=== PATIENT | female | born 1945 | race Caucasian/White ===

== ENCOUNTER → 2016-12-07 | Outpatient (CLI) | payer OTHER | LOC: FIMAGING 15:18 | DX: Z12.31 Encounter for screening mammogram for malignant neoplasm of breast (principal); Z80.3 Family history of malignant neoplasm of breast | CPT/HCPCS: G0202 ==

== ENCOUNTER → 2016-12-07 | Outpatient (CLI) | payer OTHER | LOC: FIMAGING 16:13 | PROVIDERS: ATTEND Family Medicine | DX: M20.12 Hallux valgus (acquired), left foot (principal); M77.32 Calcaneal spur, left foot; M85.872 Other specified disorders of bone density and structure, left ankle and foot; M25.551 Pain in right hip ==

== ENCOUNTER 2017-07-26 15:30 | Inpatient (IN) | payer OTHER ==
--- NOTE | 2017-07-26 16:02 | CPEKG ---
Heart Rate: 156 RR Interval: 385 QRSD Interval: 76 QT Interval: 300 QTC Interval: 483 QRS [place]: 74 T Wave [place]: -65 EKG Severity - ABNORMAL ECG - EKG Impression: ATRIAL FIBRILLATION WITH RAPID V-RATE EKG Impression: REPOLARIZATION ABNORMALITY, PROB RATE RELATED Electronically Signed By: Justin Cordero 26-Jul-2017 23:12:34
[2017-07-26 17:21] LABS: % IMMATURE GRANULYOCYTES 0.3 % (0.0-1.1); ABSOLUTE IMMATURE GRANULOCYTES 0.03 10^3/uL (0.00-0.10); ADD DIFF? NO; ADD MORPH? NO; ADD SCAN? NO; ATYPICAL LYMPHOCYTE FLAG 10 (0-99); FRAGMENT RBC FLAG 0 (0-99); HEMOGLOBIN 14.8 g/dL (12.6-16.3); LEFT SHIFT FLG 0 (0-99); LIPEMIA HEMOLYSIS FLAG 90 (0-99); MEAN CELL HEMOGLOBIN CONCENTR. 34.4 g/dL (32.4-36.7); MEAN PLATELET VOLUME 10.9 fL (8.7-11.7); PLATELET CLUMPS FLAG 0 (0-99); PLATELET COUNT 273 10^3/uL (150-400); RED BLOOD CELL COUNT 4.48 10^6/uL (4.18-5.33); RED CELL DISTRIBUTION WIDTH 14.1 % (11.5-15.2)
[2017-07-26 17:39] LABS: ANION GAP 12 mEq/L (8-16); CALCIUM 10.5 mg/dL (8.5-10.4); CARBON DIOXIDE 25 mEq/l (22-31); CHLORIDE 97 mEq/L (97-110); CREATININE 0.8 mg/dL (0.6-1.0); GLOMERULAR FILTRATION RATE > 60; GLUCOSE 95 mg/dL (70-100); POTASSIUM 3.8 mEq/L (3.5-5.2); SODIUM 134 mEq/L (134-144)
[2017-07-26] MEDS ORDERED: NS 1,000 ML IV ONE (17:40)
[2017-07-26 17:50] LABS: TROPONIN I 0.045 ng/mL (0.000-0.034)
[2017-07-26] MEDS ORDERED: METOPROLOL SUCCINATE XR 25 MG TAB PO ONE (18:22)
[2017-07-26] MEDS ORDERED: HEPARIN/DEXTROSE 500 ML IV SCH (18:30)
[2017-07-26] MEDS ORDERED: HEPARIN 10,000 UNIT/10 ML MDV IVP PRN (18:30)
[2017-07-26] MEDS ORDERED: HEPARIN 10,000 UNIT/10 ML MDV IVP ONE (18:32)
[2017-07-26] MEDS ORDERED: ASPIRIN 81 MG CHEWABLE TAB PO ONE (18:32)
--- NOTE | 2017-07-26 18:32 | EDPHY ---
H & P Stated Complaint: saw pcp today, after leaving had left chest discomfort Time Seen by Provider: 07/26/17 16:00 HPI/ROS: Chief Complaint: Chest pain, palpitations HPI: 72-year-old woman presenting with onset of chest pain and palpitations this afternoon. Pain described as a tightness in the right side of her chest and central chest up to about a 2 to 3/10. Currently she is pain free. She continues to have some palpitations. This occurred after she visited her primary care physician. Patient states she has had increased stress the last several days. She has history of palpitations in the past. She does have a history of hyponatremia and hypokalemia. She has had her palpitations attributed to this. No nausea vomiting or diarrhea. No fevers or chills. No fainting. Has never were a Holter monitor. She does take daily aspirin. Does not have any diagnosed history of coronary disease. ROS: 10 point Review of Systems is negative except as noted in the HPI. PMH: Hyponatremia, chronic back pain, colon cancer status post resection Medications: Aspirin, meloxicam p.r.n., estrogen Allergies: None Social History: No smoking, rare alcohol, no recreational drug use Family History: No family history of coronary artery disease Physical Exam: Gen: Awake, Alert, No Distress HEENT: Nose: no rhinorrhea Eyes: PERRLA, EOMI Mouth: Moist mucosa Neck: Supple, no JVD Chest: nontender, lungs clear to auscultation Heart: S1, S2 normal, no murmur, tachycardic, regular Abd: Soft, non-tender, no guarding Back: no CVA tenderness, no midline tenderness Ext: no edema, non-tender Skin: no rash Neuro: CN II-XII intact, Sensation grossly intact, Strength 5/5 in bilateral upper and lower extremities - Personal History Current Tetanus Diphtheria and Acellular Pertussis (TDAP): No - Medical/Surgical History Hx Asthma: No Hx Chronic Respiratory Disease: No Hx Diabetes: No Hx Cardiac Disease: No Hx Renal Disease: No Hx Cirrhosis: No Hx Alcoholism: No Hx HIV/AIDS: No Hx Splenectomy or Spleen Trauma: No Other PMH: BACK ISSUES, CANCER HYSTERECTOMY, HTN - Social History Smoking Status: Never smoked Constitutional: Initial Vital Signs Temperature (C) 36.9 C 10/06/17 15:42 Heart Rate 114 H 07/26/17 15:42 Respiratory Rate 18 07/26/17 15:42 Blood Pressure 135/97 H 07/26/17 15:42 O2 Sat (%) 97 07/26/17 15:42 O2 Delivery Mode Room Air Allergies/Adverse Reactions: No Known Allergies Allergy (Verified 06/27/15 15:40) Home Medications: Medication Instructions Recorded Estradiol/Levonorgestrel [Climara 1 each TD 02/22/13 Pro Patch] Protonix 20mg 20 mg BID 06/29/13 Atorvastatin Calcium 07/26/17 Meloxicam 07/26/17 Medical Decision Making - Diagnostics EKG Interpretation: ECG 1 time 1600, atrial fibrillation with a rate of 156, mild ST depressions in the 3 through V6 with no reciprocal changes. ECG 2 time 4:04 p.m., sinus tachycardia with a rate of 109, no ST or T-wave changes. Imaging Results: Imaging Impressions Chest X-Ray 07/26/17 15:49 Impression: Normal chest x-ray. ED Course/Re-evaluation: Michael introduced myself to the patient she was having an ECG done. This showed atrial fibrillation. Only 2 minutes later this had converted to a sinus tachycardia. Repeat ECG confirms this. Heart rate dropped down to 100 and remained sinus throughout. She states that her pain was gone at this point. No acute ST elevations on other ECG. Elevated troponin noted. Patient's giving additional aspirin. I have discussed with Dr. Nettie gonzalez, hospitalist. She will admit to PCU for further care. I have discussed with Dr. Franco to charly, welding production supervisor. He would like the patient placed on a heparin drip and be given metoprolol 50 mg twice daily. He will consult on the patient in the hospital. - Data Points Laboratory Results: Laboratory Results 07/26/17 16:59 07/26/17 16:30 07/26/17 07/26/17 07/26/17 16:59 16:59 16:30 WBC 9.16 10^3/uL 10^3/uL (3.80-9.50) RBC 4.48 10^6/uL 10^6/uL (4.18-5.33) Hgb 14.8 g/dL g/dL (12.6-16.3) Hct 43.0 % % (38.0-47.0) MCV 96.0 fL fL (81.5-99.8) MCH 33.0 pg pg (27.9-34.1) MCHC 34.4 g/dL g/dL (32.4-36.7) RDW 14.1 % % (11.5-15.2) Plt Count 273 10^3/uL 10^3/uL (150-400) MPV 10.9 fL fL (8.7-11.7) Neut % (Auto) 64.4 % % (39.3-74.2) Lymph % (Auto) 25.2 % % (15.0-45.0) Angelina % (Auto) 6.9 % % (4.5-13.0) Eos % (Auto) 2.3 % % (0.6-7.6) Baso % (Auto) 0.9 % % (0.3-1.7) Nucleat RBC Rel Count 0.0 % % (0.0-0.2) Absolute Neuts (auto) 5.90 10^3/uL 10^3/uL (1.70-6.50) Absolute Lymphs (auto) 2.31 10^3/uL 10^3/uL (1.00-3.00) Absolute Monos (auto) 0.63 10^3/uL 10^3/uL (0.30-0.80) Absolute Eos (auto) 0.21 10^3/uL 10^3/uL (0.03-0.40) Absolute Basos (auto) 0.08 10^3/uL 10^3/uL (0.02-0.10) Absolute Nucleated RBC 0.00 10^3/uL 10^3/uL (0-0.01) Immature Gran % 0.3 % % (0.0-1.1) Immature Gran # 0.03 10^3/uL 10^3/uL (0.00-0.10) D-Dimer 0.34 ug/mLFEU ug/mLFEU (0.00-0.50) Sodium 134 mEq/L mEq/L (134-144) Potassium 3.8 mEq/L mEq/L (3.5-5.2) Chloride 97 mEq/L mEq/L (97-110) Carbon Dioxide 25 mEq/l mEq/l (22-31) Anion Gap 12 mEq/L mEq/L (8-16) BUN 16 mg/dL mg/dL (7-23) Creatinine 0.8 mg/dL mg/dL (0.6-1.0) Estimated GFR > 60 Glucose 95 mg/dL mg/dL (70-100) Calcium 10.5 mg/dL H mg/dL (8.5-10.4) Troponin I 0.045 ng/mL H ng/mL (0.000-0.034) Medications Given: Discontinued Medications Sodium Chloride (Ns) 1,000 mls @ 0 mls/hr IV ONCE ONE; Wide Open PRN Reason: Protocol Stop: 07/26/17 17:41 Last Admin: 07/26/17 17:43 Dose: 1,000 mls Departure - Departure Disposition: [facility] Inpatient Acute Clinical Impression: Atrial fibrillation, Chest pain, Elevated troponin Condition: Fair Referrals: Darrell Salguero [Primary Care Provider] - As per Instructions
[2017-07-26] MEDS ORDERED: ONDANSETRON 4 MG/2 ML VIAL IVP PRN (18:34)
[2017-07-26] MEDS ORDERED: ONDANSETRON DISINTEGRATING 4 MG TAB PO PRN (18:34)
[2017-07-26] MEDS ORDERED: HEPARIN 10,000 UNIT/10 ML MDV ONE (18:51)
[2017-07-26] MEDS: HEPARIN/DEXTROSE 500 ML IV SCH (19:00)
[2017-07-26 19:42] LABS: INR 0.94 (0.83-1.16); PROTIME(PATIENT) 12.5 SEC (12.0-15.0)
[2017-07-26 19:43] LABS: APTT 29.9 SEC (23.0-38.0)
--- NOTE | 2017-07-26 19:54 | PDGENHP ---
History and Physical - Chief Complaint chest pain - History of Present Illness 72 yo female with h/o hypertension presents to ED with chest pain and palpitations. She went to her PCP for a routine follow up on her arthritis pain. Later she had lunch in the sun and when she stood up, she felt palpitations and some chest tightness with radiation to her left arm. She denies feeling dizzy or lightheaded. No SOB. She went to [facility] to get a B12 shot and then went back to her PCP office. She continued to have irregular, rapid heart rate and her PCP sent her to the ED for further evaluation. In the ED, she was found to be in rapid A fib. Repeat EKG showed sinus tachycardia. Trop mildly elevated at 0.045. Currently, she is chest pain free. No palpitations. She does occasionally feel irregular heart rate or palpitations, but she has never had A fib diagnosed in the past. She is admitted to the hospital for further evaluation. History Information - Allergies/Home Medication List Allergies/Adverse Reactions: No Known Allergies Allergy (Verified 06/27/15 15:40) Home Medications: Aspirin [Aspirin 81mg (*)] 81 mg PO DAILY 07/26/17 [Last Taken 07/26/17] Compounded Estrogen Cream 1 soni VG HS 07/26/17 [Last Taken 07/25/17] Estradiol [Estradiol 0.5 MG (RX)] 0.5 mg PO DAILY 07/26/17 [Last Taken 07/26/17] Meloxicam 7.5 mg PO DAILY PRN 07/26/17 [Last Taken 07/24/17] Pantoprazole Sodium [Protonix 40mg (*)] 40 mg PO DAILY PRN 07/26/17 [Last Taken Unknown] I have personally reviewed and updated: family history, medical history, social history, surgical history - Past Medical History arthritis, hyperlipidemia Additional medical history: colon cancer s/p partial colectomy 2007, followed by Dr. Reyes at [facility]. menopausal state on estrogen replacement. 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 Review of Systems Review of Systems: ROS: 10pt was reviewed & negative except for what was stated in HPI & below Physical Exam Physical Exam: Temp Pulse Resp BP Pulse Ox 36.9 C 88 16 150/84 H 96 07/26/17 19:39 07/26/17 19:39 07/26/17 19:39 07/26/17 19:39 07/26/17 19:39 Constitutional: no apparent distress Eyes: PERRL Ears, Nose, Mouth, Throat: moist mucous membranes Cardiovascular: regular rate and rhythym Respiratory: no respiratory distress, clear to auscultation Gastrointestinal: normoactive bowel sounds, soft, non-tender abdomen Skin: warm Musculoskeletal: full muscle strength Neurologic: AAOx3 Psychiatric: interacting appropriately Lab Data & Imaging Review 07/26/17 16:59 07/26/17 16:30 WBC 9.16 10^3/uL (3.80-9.50) 07/26/17 16:59 RBC 4.48 10^6/uL (4.18-5.33) 07/26/17 16:59 Hgb 14.8 g/dL (12.6-16.3) 07/26/17 16:59 Hct 43.0 % (38.0-47.0) 07/26/17 16:59 MCV 96.0 fL (81.5-99.8) 07/26/17 16:59 MCH 33.0 pg (27.9-34.1) 07/26/17 16:59 MCHC 34.4 g/dL (32.4-36.7) 07/26/17 16:59 RDW 14.1 % (11.5-15.2) 07/26/17 16:59 Plt Count 273 10^3/uL (150-400) 07/26/17 16:59 MPV 10.9 fL (8.7-11.7) 07/26/17 16:59 Neut % (Auto) 64.4 % (39.3-74.2) 07/26/17 16:59 Lymph % (Auto) 25.2 % (15.0-45.0) 07/26/17 16:59 Collin % (Auto) 6.9 % (4.5-13.0) 07/26/17 16:59 Eos % (Auto) 2.3 % (0.6-7.6) 07/26/17 16:59 Baso % (Auto) 0.9 % (0.3-1.7) 07/26/17 16:59 Nucleat RBC Rel Count 0.0 % (0.0-0.2) 07/26/17 16:59 Absolute Neuts (auto) 5.90 10^3/uL (1.70-6.50) 07/26/17 16:59 Absolute Lymphs (auto) 2.31 10^3/uL (1.00-3.00) 07/26/17 16:59 Absolute Monos (auto) 0.63 10^3/uL (0.30-0.80) 07/26/17 16:59 Absolute Eos (auto) 0.21 10^3/uL (0.03-0.40) 07/26/17 16:59 Absolute Basos (auto) 0.08 10^3/uL (0.02-0.10) 07/26/17 16:59 Absolute Nucleated RBC 0.00 10^3/uL (0-0.01) 07/26/17 16:59 Immature Gran % 0.3 % (0.0-1.1) 07/26/17 16:59 Immature Gran # 0.03 10^3/uL (0.00-0.10) 07/26/17 16:59 PT 12.5 SEC (12.0-15.0) 07/26/17 16:59 INR 0.94 (0.83-1.16) 07/26/17 16:59 APTT 29.9 SEC (23.0-38.0) 07/26/17 16:59 D-Dimer 0.34 ug/mLFEU (0.00-0.50) 07/26/17 16:59 Sodium 134 mEq/L (134-144) 07/26/17 16:30 Potassium 3.8 mEq/L (3.5-5.2) 07/26/17 16:30 Chloride 97 mEq/L (97-110) 07/26/17 16:30 Carbon Dioxide 25 mEq/l (22-31) 07/26/17 16:30 Anion Gap 12 mEq/L (8-16) 07/26/17 16:30 BUN 16 mg/dL (7-23) 07/26/17 16:30 Creatinine 0.8 mg/dL (0.6-1.0) 07/26/17 16:30 Estimated GFR > 60 07/26/17 16:30 Glucose 95 mg/dL (70-100) 07/26/17 16:30 Calcium 10.5 mg/dL (8.5-10.4) H 07/26/17 16:30 Troponin I 0.045 ng/mL (0.000-0.034) H 07/26/17 16:30 Visualized and Interpreted Chest x-ray results: Yes Chest X-Ray results: no infiltrate Visualized and Interpreted EKG results: Yes EKG additional interpertation: initial EKG A fib with RVR, repeat EKG sinus tac Assessment & Plan Assessment: Atrial fibrillation with RVR - new diagnosis. She has converted to sinus. No e /o heart failure. Chads-vasc 2-3 for age, gender and ?h/o hypertension. -admit to PCU / tele -Metoprolol 50 mg BID for rate control -Start heparin drip for stroke prevention per cards recommendation -check echo and tsh -repeat ekg now to confirm NSR Chest pain - currently chest pain free. This occurred in setting of rapid A fib. Initial trop 0.045, query strain. -trend trop -cont ASA, BB -check lipid panel in am -cards to consult in am -will keep npo at midnight GERD - cont PPI Menopausal state - discussed CV risks associated with estrogen. -will reduce dose to 0.25 and see how she tolerates this Full code DVT PPLX - on heparin Dispo - obs
[2017-07-26] MEDS: [UNRECOGNIZED DRUG - OTHER] VG SCH (20:59)
--- NOTE | 2017-07-26 21:08 | CPEKG ---
Heart Rate: 80 RR Interval: 750 P-R Interval: 156 QRSD Interval: 92 QT Interval: 380 QTC Interval: 439 P [place]: 73 QRS [place]: 53 T Wave [place]: 39 EKG Severity - BORDERLINE ECG - EKG Impression: SINUS RHYTHM EKG Impression: PROBABLE LEFT ATRIAL ABNORMALITY Electronically Signed By: eH Page 27-Jul-2017 09:14:52
[2017-07-27] MEDS: MELATONIN 3 MG TAB PO PRN ×2 (00:36→22:09)
[2017-07-27] MEDS: ACETAMINOPHEN 325 MG TAB PO PRN (07:58)
[2017-07-27] MEDS: ASPIRIN 325 MG TAB PO SCH (07:58)
[2017-07-27] MEDS: PANTOPRAZOLE SODIUM 40 MG TAB PO SCH (07:59)
[2017-07-27] MEDS: ESTRADIOL 0.5 MG TAB PO SCH (07:59)
[2017-07-27] MEDS: METOPROLOL TARTRATE 50 MG TAB PO SCH ×2 (08:01→22:09)
[2017-07-27 09:07] LABS: CHOLESTEROL 201 mg/dL (140-220); CHOLESTEROL/HDL RATIO 2.54 RATIO (1.00-4.44); HIGH DENSITY LIPOPROTEIN 79 mg/dL (40-85); LDL/HDL RATIO 1.29 RATIO (1.00-3.22); LOW DENSITY LIPOPROTEIN 102 mg/dL (80-100); NON-HIGH DENSITY LIPOPROTEIN 122 mg/dL (90-129); TRIGLYCERIDE 102 mg/dL (35-135); VERY LOW DENSITY LIPOPROTEINS 20 mg/dL (8-25)
--- NOTE | 2017-07-27 10:40 | CPEKG ---
Heart Rate: 62 RR Interval: 968 P-R Interval: 156 QRSD Interval: 90 QT Interval: 432 QTC Interval: 439 P [place]: 67 QRS [place]: 73 T Wave [place]: 68 EKG Severity - NORMAL ECG - EKG Impression: SINUS RHYTHM Electronically Signed By: He Page 27-Jul-2017 12:20:21
--- NOTE | 2017-07-27 11:42 | ASMTCMCOM ---
CM Note CM Note Notes: Reviewed chart re: d/c poc, pt's progress. Pt admitted w/ CP, afib w/ RVR; hx includes colon ca w/ a partial colectomy. Pt lives at [facility]. Plan is for pt to undergo a heart cath on [place] 07/28/17 at 1100. Anticipate pt will likely return to [facility] when medically stable. CM will follow for any potential needs. Date Signed: 07/27/2017 11:41 AM Electronically Signed By:Lupe Tiwari RN
[2017-07-27] MEDS ORDERED: TEMAZEPAM 15 MG CAP PO PRN (12:33)
[2017-07-27] MEDS ORDERED: NITROGLYCERIN 0.4 MG BTL SL PRN (12:33)
--- NOTE | 2017-07-27 12:41 | PDCARCONS ---
Cardiology Consult Reason for Consult: chest discomfort. Atrial fibrillation Chief Complaint: chest discomfort Requesting Physician: hospitalist team History of Present Illness: 72-year-old female with history of hypertension and hyperlipidemia who presented to the emergency department with chest pain and palpitations. She was at her PCPs office for routine follow-up on her arthritis pain, after lunch she felt palpitations and chest tightness in the left precordial area which radiated to the left arm. She was sent by her PCP to the ED for further evaluation She denies lightheadedness. She has not had syncope. She denies orthopnea or PND. In the ED she reported palpitations which correlated with atrial fibrillation and rapid ventricular response. This morning, she feels well, she spontaneously converted to sinus rhythm. She reports no current chest discomfort. History Information - Allergies/Home Medication List Allergies/Adverse Reactions: No Known Allergies Allergy (Verified 06/27/15 15:40) Home Medications: Aspirin [Aspirin 81mg (*)] 81 mg PO DAILY 07/26/17 [Last Taken 07/26/17] Compounded Estrogen Cream 1 soni VG HS 07/26/17 [Last Taken 07/25/17] Estradiol [Estradiol 0.5 MG (RX)] 0.5 mg PO DAILY 07/26/17 [Last Taken 07/26/17] Meloxicam 7.5 mg PO DAILY PRN 07/26/17 [Last Taken 07/24/17] Pantoprazole Sodium [Protonix 40mg (*)] 40 mg PO DAILY PRN 07/26/17 [Last Taken Unknown] I have personally reviewed and updated: family history, medical history, social history, surgical history ( History of colon cancer status post partial colectomy) Past Medical History: - Social History Smoking Status: Never smoked Alcohol Use: Occasionally Drug Use: None Physical Exam Physical Exam: Temp Pulse Resp BP Pulse Ox 36.6 C 63 16 143/78 H 91 L 07/26/17 23:59 07/27/17 11:31 07/27/17 11:31 07/27/17 11:31 07/27/17 11:31 Constitutional: no apparent distress, appears nourished Eyes: PERRL, EOMI Ears, Nose, Mouth, Throat: moist mucous membranes, hearing normal Cardiovascular: regular rate and rhythym, no murmur, rub, or gallop Respiratory: no respiratory distress, no rales or rhonchi Gastrointestinal: normoactive bowel sounds, soft, non-tender abdomen Neurologic: AAOx3 Psychiatric: interacting appropriately, not anxious, not encephalopathic, thought process linear Lab and Imaging 07/26/17 16:59 07/26/17 16:30 WBC 9.16 10^3/uL (3.80-9.50) 07/26/17 16:59 RBC 4.48 10^6/uL (4.18-5.33) 07/26/17 16:59 Hgb 14.8 g/dL (12.6-16.3) 07/26/17 16:59 Hct 43.0 % (38.0-47.0) 07/26/17 16:59 MCV 96.0 fL (81.5-99.8) 07/26/17 16:59 MCH 33.0 pg (27.9-34.1) 07/26/17 16:59 MCHC 34.4 g/dL (32.4-36.7) 07/26/17 16:59 RDW 14.1 % (11.5-15.2) 07/26/17 16:59 Plt Count 273 10^3/uL (150-400) 07/26/17 16:59 MPV 10.9 fL (8.7-11.7) 07/26/17 16:59 Neut % (Auto) 64.4 % (39.3-74.2) 07/26/17 16:59 Lymph % (Auto) 25.2 % (15.0-45.0) 07/26/17 16:59 [place] % (Auto) 6.9 % (4.5-13.0) 07/26/17 16:59 Eos % (Auto) 2.3 % (0.6-7.6) 07/26/17 16:59 Baso % (Auto) 0.9 % (0.3-1.7) 07/26/17 16:59 Nucleat RBC Rel Count 0.0 % (0.0-0.2) 07/26/17 16:59 Absolute Neuts (auto) 5.90 10^3/uL (1.70-6.50) 07/26/17 16:59 Absolute Lymphs (auto) 2.31 10^3/uL (1.00-3.00) 07/26/17 16:59 Absolute Monos (auto) 0.63 10^3/uL (0.30-0.80) 07/26/17 16:59 Absolute Eos (auto) 0.21 10^3/uL (0.03-0.40) 07/26/17 16:59 Absolute Basos (auto) 0.08 10^3/uL (0.02-0.10) 07/26/17 16:59 Absolute Nucleated RBC 0.00 10^3/uL (0-0.01) 07/26/17 16:59 Immature Gran % 0.3 % (0.0-1.1) 07/26/17 16:59 Immature Gran # 0.03 10^3/uL (0.00-0.10) 07/26/17 16:59 PT 12.5 SEC (12.0-15.0) 07/26/17 16:59 INR 0.94 (0.83-1.16) 07/26/17 16:59 APTT 29.9 SEC (23.0-38.0) 07/26/17 16:59 D-Dimer 0.34 ug/mLFEU (0.00-0.50) 07/26/17 16:59 Heparin Anti-Xa, Unfract 0.59 IU/mL (0.32-0.67) 07/27/17 08:20 Sodium 134 mEq/L (134-144) 07/26/17 16:30 Potassium 3.8 mEq/L (3.5-5.2) 07/26/17 16:30 Chloride 97 mEq/L (97-110) 07/26/17 16:30 Carbon Dioxide 25 mEq/l (22-31) 07/26/17 16:30 Anion Gap 12 mEq/L (8-16) 07/26/17 16:30 BUN 16 mg/dL (7-23) 07/26/17 16:30 Creatinine 0.8 mg/dL (0.6-1.0) 07/26/17 16:30 Estimated GFR > 60 07/26/17 16:30 Glucose 95 mg/dL (70-100) 07/26/17 16:30 Calcium 10.5 mg/dL (8.5-10.4) H 07/26/17 16:30 Troponin I 0.018 ng/mL (0.000-0.034) 07/27/17 08:20 Triglycerides 102 mg/dL (35-135) 07/27/17 08:20 Cholesterol 201 mg/dL (140-220) 07/27/17 08:20 Cholesterol Risk Factr 0.4 (0.2-1.0) 07/27/17 08:20 LDL Cholesterol, Calc 102 mg/dL (80-100) H 07/27/17 08:20 LDL Risk Factor 0.5 (0.2-1.0) 07/27/17 08:20 VLDL Cholesterol 20 mg/dL (8-25) 07/27/17 08:20 Non-HDL Cholesterol 122 mg/dL (90-129) 07/27/17 08:20 HDL Cholesterol 79 mg/dL (40-85) 07/27/17 08:20 LDL/HDL Ratio 1.29 RATIO (1.00-3.22) 07/27/17 08:20 Cholesterol/HDL Ratio 2.54 RATIO (1.00-4.44) 07/27/17 08:20 TSH 2.300 uIU/mL (0.465-4.680) 07/26/17 16:54 Visualized and Interpreted EKG results: Yes EKG Interpretation: Positive for: normal sinsus rhythm A/P Plan: 1. hypertension 2. Hyperlipidemia 3. atrial fibrillation 4. Chest discomfort mild elevation of troponins 72-year-old female presenting with above-noted findings. I have reviewed her EKGs in the emergency department that showed atrial fibrillation. There was inferolateral ST depression during atrial fibrillation. Post conversion to sinus rhythm, EKG has normalized. Her troponin is mildly elevated. Echocardiogram shows normal LV function without any regional wall motion abnormalities. Given her symptoms, dynamic EKG changes and mild elevation of troponin, coronary angiography would be the most appropriate option. As an alternative I have discussed stress testing with perfusion imaging and medical treatment only. Both she and I agree that given the symptoms with EKG changes and troponin elevation coronary angiography is appropriate. Risks of the procedure including , mi, CVA, cardiac tamponade, infection, renal failure, anaphylaxis, vascular access complications etc were discussed with the patient She is scheduled for coronary angiography tomorrow Heparin will be continued until for a.m. tomorrow. [id number] Score is 4, she will need to be on lifelong anticoagulation. After coronary angiography she will be started on Eliquis 5 mg twice daily.
--- NOTE | 2017-07-27 15:08 | HOSPPROG ---
Hospitalist Progress Note Assessment/Plan: # CP/troponin elevation/dynamic ST depressions - agree with angio tomorrow # a-fib RVR, now NSR - heparin gtt - metop # GERD - ppi dispo - inpatient; needs > 2 midnights for possible NSTEMI, coronary angiogram Subjective: no CP today Objective: Vital Signs Temp Pulse Resp BP Pulse Ox 35.9 C L 63 16 143/78 H 91 L 07/27/17 13:03 07/27/17 11:31 07/27/17 11:31 07/27/17 11:31 07/27/17 11:31 07/26/17 07/27/17 07/28/17 05:59 05:59 05:59 Intake Total 300 Balance 300 PT 12.5 SEC (12.0-15.0) 07/26/17 16:59 INR 0.94 (0.83-1.16) 07/26/17 16:59 chart reviewed ECG personally reviewed CXR reviewed - Physical Exam Constitutional: no apparent distress, appears nourished Cardiovascular: regular rate and rhythym, no murmur, rub, or gallop Respiratory: no respiratory distress, no rales or rhonchi, clear to auscultation Gastrointestinal: normoactive bowel sounds, soft, non-tender abdomen, no palpable masses ICD10 Worksheet Patient Problems: Problems Problem Status Onset Atrial fibrillation Acute Chest pain Acute Elevated troponin Acute
[2017-07-27] MEDS: HEPARIN/DEXTROSE 500 ML IV SCH (15:16)
--- NOTE | 2017-07-27 15:40 | PDMN ---
Medical Necessity Medical necessity: C/M review: Pt. meets INPT criteria per MCG M-89 Chest pain , M-505 Atrial fibrillation; Acute chest pain, palpitations, dynamic ST depressions on EKG- all concerning for possible NSTEMI, atrial fibrillation with rapid ventricular response, elevated troponins 0.045, 0.040, 0.018 requiring planned 07/28/2017 cardiac catheterization, ongoing IV Heparin infusion , cardiac monitoring, comorbid hypertension, hyperlipidemia; anticipates > 2 MN LOS for ongoing medical necessity for eval and TX of above.
[2017-07-27] MEDS: [UNRECOGNIZED DRUG - OTHER] VG SCH (22:10)
[2017-07-28 05:49] LABS: INR 1.12 (0.83-1.16); PROTIME(PATIENT) 14.3 SEC (12.0-15.0)
[2017-07-28 06:20] LABS: APTT 133.7 SEC (23.0-38.0)
--- NOTE | 2017-07-28 08:07 | PDHPUP ---
History & Physical Update H&P update statement: This history and physical update is based on an assessment of the patient which was completed after admission or registration (within 24 hours), but prior to the surgery/procedure. H&P update: H&P reviewed & patient examined, no change in patient's condition since H&P completed
--- NOTE | 2017-07-28 08:07 | PDPROPOC ---
Sedation Plan of Care Sedation Plan of Care: vital signs stable, mental status noted, patient educated of risks, benefits, alternatives, patient can tolerate sedation ASA Classification: ASA 2 Planned drugs: fentanyl, midazolam Mallampati Score: Class 2 Mallampati Reference Image: Patient passed 3-3-2 rule?: Yes
[2017-07-28] MEDS: ESTRADIOL 0.5 MG TAB PO SCH (08:20)
[2017-07-28] MEDS: PANTOPRAZOLE SODIUM 40 MG TAB PO SCH (08:20)
[2017-07-28] MEDS: ASPIRIN 325 MG TAB PO SCH (08:20)
[2017-07-28] MEDS: METOPROLOL TARTRATE 50 MG TAB PO SCH ×2 (08:21→20:53)
--- NOTE | 2017-07-28 09:38 | PDCARPN ---
Cardiology Progress Note Chief Complaint: Chest pain Assessment/Plan: Assessment: 1. Atrial fibrillation 2. Acute coronary syndrome 3. Hypertension 4. Hyperlipidemia Plan: 1. Coronary angiography today 2. Continue metoprolol and aspirin. Start Lipitor 10 mg daily. 3. Post coronary angiography, when okay with Dr. Salvador Desai start Eliquis 5 mg twice daily 07/28/17 09:38 Subjective: She offers no complaints today. She has not had recurrent chest pain Time Spent With Patient: 10 minutes Objective: Vital Signs (8 Hrs) Temp Pulse Resp BP Pulse Ox 07/28/17 08:42 36.0 C 68 16 131/81 H 95 07/28/17 08:21 72 131/81 H 07/28/17 04:00 37.0 C 65 16 116/66 93 Intake/Output (24 Hrs) 07/26/17 07/27/17 07/28/17 11:59 11:59 11:59 Intake Total 2830 Balance 2830 Intake: Oral (ml) 2300 IV Infused (ml) 530 Heparin/Dextrose 500 ml @ 530 Per Protocol IV CONT NIEVES Rx#:[id number] Other: Number of Voids Toilet 3 Number of Stools Toilet 1 Result Diagrams: 07/28/17 04:02 07/26/17 16:30 Telemetry: Normal sinus rhythm - Physical Exam Eyes: PERRL, EOMI Cardiovascular: regular rate and rhythm, no murmurs Respiratory: clear to auscultate bilat ICD10 Worksheet Patient Problems: Problems Problem Status Onset Atrial fibrillation Acute Chest pain Acute Elevated troponin Acute
[2017-07-28] MEDS ORDERED: LIDOCAINE 1% 300 MG/30 ML SDV ONE (10:44)
[2017-07-28] MEDS ORDERED: fentaNYL 100 MCG/2 ML INJ ONE (10:45)
[2017-07-28] MEDS ORDERED: HEPARIN 10,000 UNIT/10 ML MDV ONE (10:45)
[2017-07-28] MEDS ORDERED: MIDAZOLAM 2 MG/2 ML VIAL ONE (10:45)
[2017-07-28] MEDS ORDERED: IOPAMIDOL (ISOVUE-370) 150 ML BTL IV ONE (10:45)
[2017-07-28] MEDS ORDERED: VERAPAMIL 5 MG/2 ML VIAL ONE (10:45)
[2017-07-28] MEDS ORDERED: NITROGLYCERIN 0.4 MG BTL SL PRN (12:01)
[2017-07-28] MEDS ORDERED: CLOPIDOGREL BISULFATE 75 MG TAB PO ONE (12:01)
--- NOTE | 2017-07-28 12:08 | PDDXCAT ---
Diagnostic Cath Note - . Date: 07/28/17 Banking Assistant: Lloyd Indication: other (Non-Q-wave myocardial infarction with chest pressure radiating to left arm elevation in troponin) - Procedure Access: right wrist Procedure: left heart catheterization, coronary angiography, left ventriculogram - Materials Left Heart Cath size: 5F Left Heart Cath materials: pigtail, other ([email or web address]) - Findings-Left Heart Catheterization LM: Short unobstructed LAD: Large vessel extending to the apex. Luminal irregularities 10-20%. LCX: Dominant vessel: Bifurcation stenosis of 85-90% at the posterior descending coronary artery and 2nd obtuse marginal branch RCA: Small non dominant EDP: 20 mm of mercury LVEF: 72% Wall motion: No regional wall motion abnormalities Complications: None Estimated blood loss: <50ml Closure method: TR Band Assessment: Procedure details: Please see attached computer report. Contrast: 120 cc. Sedation: 2 mg Versed and 100 mcg of fentanyl. Radiation: 8.8 minutes of fluoroscopy 451mGy. Conclusions: Non-Q-wave myocardial infarction with culprit stenosis of the posterior descending/obtuse marginal branch. Plan: PCI of the posterior descending/obtuse marginal branch Intervention: Procedure: PCI and stenting of the obtuse marginal branch. Indications: 72-year-old female admitted with acute coronary syndrome characterized by chest pressure radiating to left arm elevation in troponin in the setting of rapid atrial fibrillation. After reviewing diagnostic angiograms it was elected to proceed with urgent PCI. Patient was anticoagulated with heparin. Therapeutic ACT was confirmed. 6 Turkmen sheath was placed in the right radial artery. Using a 6 Turkmen JL 4 guiding catheter left main coronary was selectively intubated. Using a 0.014 luge wire the mohegan circumflex/PD artery was entered. Using a 2nd 0.014 luge wire the obtuse marginal branch. Using a 2.5 by 12 mm balloon the obtuse marginal branch stenosis was dilated with a single inflation. This showed marked improvement in luminal dye mentions with excellent flow. It was elected to proceed with stenting across the posterior descending coronary artery branch. A 2.5 x 16 mm synergy stent was placed across the lesion. The posterior descending coronary artery wire was withdrawn. The stent was deployed using a single inflation. Distal spasm was identified. She was administered intracoronary nitroglycerin. Final orthogonal angiogram showed SURESH grade 3 flow in both limbs. Final diagnosis: Non-Q-wave myocardial infarction status post successful PCI and stenting of the obtuse marginal branch. Plan: Dual antiplatelet therapy along with anticoagulation for atrial fibrillation for 30 days. At that point would go to Plavix plus NOAC. Aggressive secondary prevention. Patient Problems: Problems Problem Status Onset Atrial fibrillation Acute Chest pain Acute Elevated troponin Acute
[2017-07-28] MEDS ORDERED: CLOPIDOGREL BISULFATE 75 MG TAB ONE (12:20)
[2017-07-28] MEDS ORDERED: NITROGLYCERIN 1,500 MCG/15 ML VIAL MISC ONE (12:21)
[2017-07-28] MEDS: ATORVASTATIN CALCIUM 40 MG TAB PO SCH (13:40)
--- NOTE | 2017-07-28 14:28 | HOSPPROG ---
Hospitalist Progress Note Assessment/Plan: # NSTEMI s/p PCI to OM - asa/plavix for 30 days # a-fib RVR, now NSR - eliquis, metop # GERD - ppi Subjective: s/p PCI to OM Objective: Vital Signs Temp Pulse Resp BP Pulse Ox 36.0 C 68 16 131/81 H 95 07/28/17 08:42 07/28/17 08:42 07/28/17 08:42 07/28/17 08:42 07/28/17 08:42 Laboratory Results 07/28/17 04:02 07/27/17 07/28/17 07/29/17 05:59 05:59 05:59 Intake Total 2830 Balance 2830 PT 14.3 SEC (12.0-15.0) 07/28/17 04:00 INR 1.12 (0.83-1.16) 07/28/17 04:00 cath note reviewed tele reviewed - Physical Exam Constitutional: no apparent distress, appears nourished Cardiovascular: regular rate and rhythym, no murmur, rub, or gallop Respiratory: no respiratory distress, no rales or rhonchi, clear to auscultation Gastrointestinal: normoactive bowel sounds, soft, non-tender abdomen, no palpable masses ICD10 Worksheet Patient Problems: Problems Problem Status Onset Atrial fibrillation Acute Chest pain Acute Elevated troponin Acute
--- NOTE | 2017-07-28 14:53 | CPEKG ---
Heart Rate: 56 RR Interval: 1071 P-R Interval: 156 QRSD Interval: 86 QT Interval: 420 QTC Interval: 406 P [place]: 54 QRS [place]: 62 T Wave [place]: 42 EKG Severity - NORMAL ECG - EKG Impression: SINUS RHYTHM Electronically Signed By: He Page 28-Jul-2017 17:43:50
[2017-07-28] MEDS: [UNRECOGNIZED DRUG - OTHER] VG SCH (20:53)
[2017-07-28] MEDS: MELATONIN 3 MG TAB PO PRN (20:54)
[2017-07-28] MEDS: ACETAMINOPHEN 325 MG TAB PO PRN (20:59)
[2017-07-28] MEDS ORDERED: APIXABAN 5 MG TAB PO SCH (21:00)
[2017-07-29 05:18] LABS: % IMMATURE GRANULYOCYTES 0.4 % (0.0-1.1); ABSOLUTE IMMATURE GRANULOCYTES 0.04 10^3/uL (0.00-0.10); ADD DIFF? NO; ADD MORPH? NO; ADD SCAN? NO; ATYPICAL LYMPHOCYTE FLAG 0 (0-99); FRAGMENT RBC FLAG 0 (0-99); LEFT SHIFT FLG 0 (0-99); LIPEMIA HEMOLYSIS FLAG 80 (0-99); MEAN CELL HEMOGLOBIN 32.6 pg (27.9-34.1); MEAN CELL HEMOGLOBIN CONCENTR. 33.3 g/dL (32.4-36.7); MEAN CELL VOLUME 97.8 fL (81.5-99.8); MEAN PLATELET VOLUME 11.4 fL (8.7-11.7); PLATELET CLUMPS FLAG 10 (0-99); PLATELET COUNT 225 10^3/uL (150-400); RED BLOOD CELL COUNT 3.68 10^6/uL (4.18-5.33); RED CELL DISTRIBUTION WIDTH 14.3 % (11.5-15.2)
[2017-07-29 05:49] LABS: ALBUMIN 3.5 g/dL (3.5-5.0); ANION GAP 10 mEq/L (8-16); ASPARTATE AMINOTRANSFERASE 26 IU/L (14-46); BILIRUBIN,TOTAL 0.3 mg/dL (0.1-1.4); CALCIUM 9.1 mg/dL (8.5-10.4); CARBON DIOXIDE 21 mEq/l (22-31); CHLORIDE 104 mEq/L (97-110); CREATININE 0.8 mg/dL (0.6-1.0); GLOMERULAR FILTRATION RATE > 60; GLUCOSE 86 mg/dL (70-100); LACTATE DEHYDROGENASE 438 IU/L (313-618); MAGNESIUM 1.9 mg/dL (1.6-2.3); POTASSIUM 4.5 mEq/L (3.5-5.2); SODIUM 135 mEq/L (134-144)
--- NOTE | 2017-07-29 08:26 | CPEKG ---
Heart Rate: 64 RR Interval: 938 P-R Interval: 152 QRSD Interval: 94 QT Interval: 408 QTC Interval: 421 P [place]: 64 QRS [place]: 62 T Wave [place]: 28 EKG Severity - NORMAL ECG - EKG Impression: SINUS RHYTHM Electronically Signed By: He Page 29-Jul-2017 17:55:48
[2017-07-29] MEDS ORDERED: BISACODYL 10 MG SUPP PR PRN (08:44)
[2017-07-29] MEDS ORDERED: LACTULOSE 20 GM/30 ML UDCUP PO PRN (08:44)
[2017-07-29] MEDS ORDERED: POLYETHYLENE GLYCOL 3350 17 GM PKT PO PRN (08:44)
[2017-07-29] MEDS ORDERED: MAGNESIUM HYDROXIDE 30 ML UDCUP PO PRN (08:44)
[2017-07-29] MEDS: ESTRADIOL 0.5 MG TAB PO SCH (09:52)
[2017-07-29] MEDS: METOPROLOL TARTRATE 50 MG TAB PO SCH ×2 (09:53→21:07)
[2017-07-29] MEDS: ASPIRIN EC 81 MG TAB PO SCH (09:53)
[2017-07-29] MEDS: ATORVASTATIN CALCIUM 40 MG TAB PO SCH (09:53)
[2017-07-29] MEDS: APIXABAN 5 MG TAB PO SCH ×2 (09:54→21:07)
[2017-07-29] MEDS: ASPIRIN 325 MG TAB PO SCH ×2 (09:54→10:04)
[2017-07-29] MEDS: CLOPIDOGREL BISULFATE 75 MG TAB PO SCH (09:54)
[2017-07-29] MEDS: SENNOSIDES/DOCUSATE SODIUM TAB PO SCH ×2 (10:03→21:08)
[2017-07-29] MEDS: PANTOPRAZOLE SODIUM 40 MG TAB PO SCH (10:03)
--- NOTE | 2017-07-29 10:06 | CPEKG ---
Heart Rate: 109 RR Interval: 550 P-R Interval: 156 QRSD Interval: 96 QT Interval: 332 QTC Interval: 448 P [place]: 62 QRS [place]: 47 T Wave [place]: 22 EKG Severity - BORDERLINE ECG - EKG Impression: SINUS TACHYCARDIA EKG Impression: PROBABLE LEFT ATRIAL ABNORMALITY Electronically Signed For: Justin Cordero 29-Jul-2017 10:07:00
--- NOTE | 2017-07-29 15:19 | HOSPPROG ---
Hospitalist Progress Note Assessment/Plan: # NSTEMI s/p PCI to OM - asa/plavix for 30 days # a-fib RVR, now NSR - eliquis, metop # GERD - ppi # dispo - should be discharged tomorrow Subjective: feels lightheaded, skin crawling, weak, nervous about going home Objective: Vital Signs Temp Pulse Resp BP Pulse Ox 36.1 C 783 H 18 136/74 H 98 07/29/17 15:16 07/29/17 15:16 07/29/17 15:16 07/29/17 15:16 07/29/17 15:16 Laboratory Results 07/29/17 03:28 07/29/17 03:28 07/28/17 07/29/17 07/30/17 05:59 05:59 05:59 Intake Total 2830 1800 Balance 2830 1800 PT 14.3 SEC (12.0-15.0) 07/28/17 04:00 INR 1.12 (0.83-1.16) 07/28/17 04:00 tele reviewed discussed with dr mitchell - Physical Exam Constitutional: no apparent distress, appears nourished Cardiovascular: regular rate and rhythym, no murmur, rub, or gallop Respiratory: no respiratory distress, no rales or rhonchi, clear to auscultation Gastrointestinal: normoactive bowel sounds, soft, non-tender abdomen, no palpable masses ICD10 Worksheet Patient Problems: Problems Problem Status Onset Atrial fibrillation Acute Chest pain Acute Elevated troponin Acute
--- NOTE | 2017-07-29 17:38 | SOAPPROG ---
NICOLE Progress Note Assessment/Plan: Assessment: 1. Atrial fibrillation with rapid ventricular response: Paroxysmal. 2. Coronary artery disease status post PCI of the dominant circumflex in the setting of unstable angina/ACS. Procedure: Left heart catheterization with PCI and stenting of the dominant circumflex artery. Normal LV systolic function 07/29/17 17:35 Impression: Day 1 status post PCI. Patient is free of angina. PCI uncomplicated. She is feeling somewhat improved. Recommendations: Dual antiplatelet therapy along with Eliquis for thromboembolic protection for 30 days. At that time transfer to Plavix and Eliquis. Dual antiplatelet therapy should include 81 mg of aspirin and 75 mg of Plavix. Aggressive secondary prevention with statin therapy. Low-dose beta-adenike. Subjective: Denies chest pain, shortness of breath. Patient has had some tingling of the upper and lower extremities. She is clearly anxious about her diagnosis and treatment. Cardiac review of systems is negative for chest pain, shortness of breath, PND , orthopnea, palpitations, syncope, near syncope, edema. Objective: Medications Generic Name Dose Route Start Last Admin Trade Name Freq PRN Reason Stop Dose Admin Aspirin Buffered 81 mg 07/29/17 09:00 07/29/17 09:53 Aspirin Ec PO 01/25/18 08:59 81 mg DAILY [facility] Apixaban 5 mg 07/29/17 09:00 07/29/17 09:54 Eliquis PO 01/25/18 08:59 5 mg BID [facility] Atorvastatin Calcium 40 mg 07/28/17 12:15 07/29/17 09:53 Lipitor PO 01/24/18 12:14 40 mg DAILY [facility] Clopidogrel Bisulfate 75 mg 07/29/17 09:00 07/29/17 09:54 Plavix PO 01/25/18 08:59 75 mg DAILY [facility] Metoprolol Tartrate 50 mg 07/27/17 08:00 07/29/17 09:53 Lopressor PO 01/23/18 07:59 50 mg BID [facility] Vital Signs Temp Pulse Resp BP Pulse Ox 36.1 C 783 H 18 136/74 H 98 07/29/17 15:16 07/29/17 15:16 07/29/17 15:16 07/29/17 15:16 07/29/17 15:16 Laboratory Results 07/29/17 03:28 07/29/17 03:28 07/28/17 07/29/17 07/30/17 05:59 05:59 05:59 Intake Total 2830 1800 Balance 2830 1800 PT 14.3 SEC (12.0-15.0) 07/28/17 04:00 INR 1.12 (0.83-1.16) 07/28/17 04:00 Laboratory Tests 07/26/17 07/26/17 07/27/17 16:30 22:34 08:20 Troponin I 0.045 H 0.040 H 0.018 Cholesterol LDL Cholesterol, Calc HDL Cholesterol 07/27/17 08:20 Troponin I Cholesterol 201 LDL Cholesterol, Calc 102 H HDL Cholesterol 79 ICD10 Worksheet Patient Problems: Problems Problem Status Onset Atrial fibrillation Acute Chest pain Acute Elevated troponin Acute Past Medical History - Personal History Current Tetanus Diphtheria and Acellular Pertussis (TDAP): No - Medical/Surgical History Hx Asthma: No Hx Chronic Respiratory Disease: No Hx Cardiac Disease: No Hx Diabetes: No Hx Renal Disease: No Hx Alcoholism: No Hx Cirrhosis: No Hx HIV/AIDS: No Hx Splenectomy or Spleen Trauma: No Other PMH: BACK ISSUES, CANCER HYSTERECTOMY, HTN - Social History Smoking Status: Never smoked Review of Systems - Review of Systems Constitutional: denies: chills, fever EENTM: no symptoms reported Respiratory: no symptoms reported Cardiac: no symptoms reported Gastrointestinal/Abdominal: no symptoms reported Genitourinary: no symptoms Musculoskelatal: no symptoms Skin: rash Neurological: paresthesia
[2017-07-29] MEDS: [UNRECOGNIZED DRUG - OTHER] VG SCH (20:52)
[2017-07-29] MEDS: MELATONIN 3 MG TAB PO PRN (23:58)
[2017-07-30 10:48] VITALS: BP 123/84; PULSE 67; RESP 17; TEMP 96.4; O2SAT 95
[2017-07-30] MEDS: ESTRADIOL 0.5 MG TAB PO SCH (12:17)
[2017-07-30] MEDS: SENNOSIDES/DOCUSATE SODIUM TAB PO SCH (12:17)
[2017-07-30] MEDS: ASPIRIN EC 81 MG TAB PO SCH (12:18)
[2017-07-30] MEDS: ATORVASTATIN CALCIUM 40 MG TAB PO SCH (12:18)
[2017-07-30] MEDS: APIXABAN 5 MG TAB PO SCH (12:18)
[2017-07-30] MEDS: METOPROLOL TARTRATE 50 MG TAB PO SCH (12:18)
[2017-07-30] MEDS: CLOPIDOGREL BISULFATE 75 MG TAB PO SCH (12:18)
[2017-07-30] MEDS: PANTOPRAZOLE SODIUM 40 MG TAB PO SCH (12:18)
--- NOTE | 2017-07-30 13:11 | HOSPPROG ---
Hospitalist Progress Note Assessment/Plan: 72 yo F with no significant PMH presenting with chest pain and palpitations found to be 2/2 a fib w/rvr and NSTEMI # NSETMI: s/p PCI to OM, patient has not had chest pain since but states she still feels run down and exhausted similar to her pre stent sxs. Started on asa , plavix, eliquis, statin, BB and will f/u with cardiology after dc. Will need eliquis x 30 days, then asa/plavix. # a fib w/rvr: paroxysmal, personally reviewed most recent ecg with SR, continue BB/eliquis x 30 days # fatigue/generalized weakness: in discussion with the patient she has not been moving much since being admitted, suspect she is deconditioned at baseline and quickly becoming more so here, does not have any focal weakness or specific complaints. Will have PT/OT continue to work with her, feel this is largely motivation dependent and patient has stated she prefers not to dc today. Will ask PT/OT to evaluate and help get patient more mobile. # GERD: continue PPI # dispo: IP status, likely ready for dc today or tomorrow pending on improvement in her mobility Patient new to my care. Old records reviewed and summarized as above. Subjective: no significant overnight events, patient today states she feels "very weak and run down" does not feel she is up for going home in current condition Objective: Vital Signs Temp Pulse Resp BP Pulse Ox 35.8 C L 67 17 123/84 H 95 07/30/17 10:47 07/30/17 10:47 07/30/17 10:47 07/30/17 10:47 07/30/17 10:47 Laboratory Results 07/29/17 03:28 07/29/17 03:28 07/29/17 07/30/17 07/31/17 05:59 05:59 05:59 Intake Total 1800 400 Balance 1800 400 PT 14.3 SEC (12.0-15.0) 07/28/17 04:00 INR 1.12 (0.83-1.16) 07/28/17 04:00 awake alert nad anicteric op clear rrr no mrg cta b soft nt nd no cce warm dry well perfused oriented appropriate - Time Spent With Patient Time Spent with Patient: greater than 35 minutes Time Spent with Patient: Greater than 35 minutes spent on this patients care, greater than 50% of time spent counseling, educating, and coordinating care regarding the above mentioned plan. ICD10 Worksheet Patient Problems: Problems Problem Status Onset Atrial fibrillation Acute Chest pain Acute Elevated troponin Acute
[2017-07-30] MEDS ORDERED: MULTIVITAMINS 1 EACH TAB PO SCH (14:15)
--- NOTE | 2017-07-30 15:22 | SOAPPROG ---
NICOLE Progress Note Assessment/Plan: Assessment: 1. Atrial fibrillation with rapid ventricular response: Paroxysmal. 2. Coronary artery disease status post PCI of the dominant circumflex in the setting of unstable angina/ACS. Procedure: Left heart catheterization with PCI and stenting of the dominant circumflex artery. Normal LV systolic function 07/30/17 15:15 Impression: Day 2 status post PCI. Ready for discharge with stable vital signs. Follow up 10-14 days Cardiac rehabilitation. 07/29/17 17:35 Impression: Day 1 status post PCI. Patient is free of angina. PCI uncomplicated. She is feeling somewhat improved. Recommendations: Dual antiplatelet therapy along with Eliquis for thromboembolic protection for 30 days. At that time transfer to Plavix and Eliquis. Dual antiplatelet therapy should include 81 mg of aspirin and 75 mg of Plavix. Aggressive secondary prevention with statin therapy. Low-dose beta-adenike. Subjective: Worried about going home. Objective: Vital Signs Temp Pulse Resp BP Pulse Ox 35.8 C L 67 17 123/84 H 95 07/30/17 10:47 07/30/17 10:47 07/30/17 10:47 07/30/17 10:47 07/30/17 10:47 Laboratory Results 07/29/17 03:28 07/29/17 03:28 07/29/17 07/30/17 07/31/17 05:59 05:59 05:59 Intake Total 1800 400 Balance 1800 400 PT 14.3 SEC (12.0-15.0) 07/28/17 04:00 INR 1.12 (0.83-1.16) 07/28/17 04:00 Physical Exam - Physical Exam General Appearance: alert, no apparent distress EENT: PERRL/EOMI Neck: non-tender, full range of motion, supple Respiratory: chest non-tender, lungs clear Cardiac/Chest: normal peripheral pulses, regular rate, rhythm ICD10 Worksheet Patient Problems: Problems Problem Status Onset Atrial fibrillation Acute Chest pain Acute Elevated troponin Acute
--- NOTE | 2017-07-30 15:32 | PDDCSUM ---
Discharge Summary Discharge Summary: Dates of service 07/26-07/30/17 Consultations: cardiology Procedures: coronary angiography and PCI Hospital course by problem: # NSETMI: s/p PCI to OM, patient has not had chest pain since but states she still feels run down and exhausted similar to her pre stent sxs. Started on asa , plavix, eliquis, statin, BB and will f/u with cardiology after dc. Will need eliquis x 30 days, then asa/plavix. # a fib w/rvr: paroxysmal, personally reviewed most recent ecg with SR, continue BB/eliquis x 30 days # fatigue/generalized weakness: in discussion with the patient she has not been moving much since being admitted, suspect she is deconditioned at baseline and quickly becoming more so here, does not have any focal weakness or specific complaints. PT/OT notes that her mobility is actually quite good but motivation is poor. Sending home with home health. # GERD: continue PPI dc home f/u with PCP as well as cardiology > 35 min spent in dc more than half in coordination of care
--- NOTE | 2017-07-30 15:32 | PDIAF ---
- Diagnosis Code Status: Full Code - Medication Management Discharge Medications: Medications to Continue on Transfer Aspirin [Aspirin 81mg (*)] 81 mg PO DAILY 07/26/17 [Last Taken 07/26/17] Compounded Estrogen Cream 1 soni VG HS 07/26/17 [Last Taken 07/25/17] Estradiol 0.5 mg PO DAILY 07/26/17 [Last Taken 07/26/17] Pantoprazole Sodium [Protonix 40mg (*)] 40 mg PO DAILY PRN 07/26/17 [Last Taken Unknown] Acetaminophen [Tylenol 325mg (*)] 650 mg PO Q4HRS PRN tab 07/30/17 [Last Taken Unknown] Apixaban [Eliquis] 5 mg PO BID #60 tab 07/30/17 [Last Taken Unknown] Atorvastatin Calcium [Lipitor 40 mg (*)] 40 mg PO DAILY #30 tab 07/30/17 [Last Taken Unknown] Clopidogrel Bisulfate [Plavix (*)] 75 mg PO DAILY #30 tab 07/30/17 [Last Taken Unknown] Metoprolol Tartrate [Lopressor 50 mg (*)] 50 mg PO BID #60 tab 07/30/17 [Last Taken Unknown] Multivitamins [Multivitamin (*)] 1 each PO DAILY tab 07/30/17 [Last Taken Unknown] Discharge Medications: Refer to the Discharge Home Medication list for PRN reason. - Orders Services needed: Home Care, Registered Nurse Home Care Face to Face: I certify that this patient was under my care and that I had the required [id number] encounter meeting the encounter requirements on the discharge day. My findings support the fact that the patient is homebound as defined in Home Care Face to Face Continued: CMS Chapter 7 Medicare Benefits Manual 30.1.1 , The condition of the patient is such that there exists a normal inability to leave home and consequently, leaving home would require a considerable and taxing effort. Diet Recommendation: no restrictions on diet - Follow Up Care Current Providers and Referrals: Darrell Salguero [Primary Care Provider] - As per Instructions Salvador Desai MD [Medical Doctor] -
--- NOTE | 2017-07-30 15:57 | ASMTCMCOM ---
CM Note CM Note Notes: 07/30/2017 Case Management Note: Met w/pt to discuss d/c poc. Discussed in depth SNF placement requirements. Pt refused SNF placement stating she would [place]. Pt uses [employer] for grocery store and is able to prepare meals independently. Pt reports applying for Long Term Medicaid application through [employer]. Case Management arranged for [facility] to start RN services to monitor recovery and medication management. Parag from [facility] met w/pt to start plan of care. [facility] Case Management arranged transport through [facility] at pt request. 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 Case Management spent >45 minutes on pt case today. Date Signed: 07/30/2017 03:56 PM Electronically Signed By:Rochelle Martinez RN
--- NOTE | 2017-07-31 16:39 | ASMTCMCOM ---
CM Note CM Note Notes: 07/31/2017 Case Management Note Pt d/c yesterday to [facility]. Received call today from Parag Pura that Sharon does not consider [facility] to be in network provider. Parag reports that Sharon uses only [facility]. She has referred the pt to [facility] for services. Parag notified the pt of change of Home Care Services providers. Date Signed: 07/31/2017 04:38 PM Electronically Signed By:Rochelle Martinez RN
== END 2017-07-30 16:56 | disposition home health service (06) | DRG 247 ==
LOC: INTOOBSV 18:25 → F2W 20:28 → OBSVTOIN 07-27 15:11
PROVIDERS: ADMIT Hospitalist; ATTEND Hospitalist
PROC: 027034Z Dilation of Coronary Artery, One Artery with Drug-eluting Intraluminal Device, Percutaneous Approach (ICD-10-PCS; principal; 2017-07-28)
PROC: B2111ZZ Fluoroscopy of Multiple Coronary Arteries using Low Osmolar Contrast (ICD-10-PCS; principal; 2017-07-28)
PROC: B2151ZZ Fluoroscopy of Left Heart using Low Osmolar Contrast (ICD-10-PCS; principal; 2017-07-28)
PROC: 4A023N7 Measurement of Cardiac Sampling and Pressure, Left Heart, Percutaneous Approach (ICD-10-PCS; principal; 2017-07-28)
DX: I21.4 Non-ST elevation (NSTEMI) myocardial infarction (principal); I25.110 Atherosclerotic heart disease of native coronary artery with unstable angina pectoris; I48.0 Paroxysmal atrial fibrillation; K21.9 Gastro-esophageal reflux disease without esophagitis; I10 Essential (primary) hypertension; E78.5 Hyperlipidemia, unspecified
CPT/HCPCS: 85520-90; C1725; C1769; C1874; C1887; C9600; G0378; J1644; J2250; J3010; Q9967

== ENCOUNTER → 2017-08-15 | Outpatient (CLI) | payer OTHER | LOC: FIMAGING 17:12 | PROVIDERS: ATTEND Family Medicine | DX: M50.30 Other cervical disc degeneration, unspecified cervical region (principal); M47.892 Other spondylosis, cervical region; M43.12 Spondylolisthesis, cervical region ==

== ENCOUNTER → 2017-12-12 | Outpatient (CLI) | payer OTHER | LOC: FIMAGING 14:51 | PROVIDERS: ATTEND Family Medicine | DX: Z12.31 Encounter for screening mammogram for malignant neoplasm of breast (principal) ==

== ENCOUNTER → 2018-01-08 | Outpatient (CLI) | payer OTHER | LOC: FIMAGING 12:17 | PROVIDERS: ATTEND Family Medicine | DX: M25.571 Pain in right ankle and joints of right foot (principal); M79.89 Other specified soft tissue disorders ==

== ENCOUNTER → 2018-03-21 | Outpatient (CLI) | payer OTHER | LOC: FIMAGING 10:48 | PROVIDERS: ATTEND Internal Medicine Hematology & Oncology | DX: K80.20 Calculus of gallbladder without cholecystitis without obstruction (principal); D72.829 Elevated white blood cell count, unspecified; D64.9 Anemia, unspecified; Z85.038 Personal history of other malignant neoplasm of large intestine ==

== ENCOUNTER → 2018-04-11 | Outpatient (CLI) | payer OTHER | LOC: FIMAGING 15:10 | PROVIDERS: ATTEND Family Medicine | DX: R05 Cough (principal) ==

== ENCOUNTER → 2018-06-09 | Outpatient (CLI) | payer OTHER | LOC: FIMAGING 13:45 | PROVIDERS: ATTEND Family Medicine | DX: K80.20 Calculus of gallbladder without cholecystitis without obstruction (principal); Z85.038 Personal history of other malignant neoplasm of large intestine ==

== ENCOUNTER 2018-07-22 08:51 | Inpatient (IN) | payer OTHER ==
[2018-07-22] MEDS ORDERED: ceFAZolin 2 GM/DEXTROSE 100 ML IV ONE (09:17)
[2018-07-22] MEDS ORDERED: LR 1,000 ML IV ONE (09:18)
[2018-07-22] MEDS ORDERED: MIDAZOLAM 2 MG/2 ML VIAL ONE (09:36)
[2018-07-22] MEDS ORDERED: DEXAMETHASONE 4 MG/ML VIAL ONE ×2 (09:36→13:21)
[2018-07-22] MEDS ORDERED: PROPOFOL 200 MG/20 ML VIAL ONE (09:36)
[2018-07-22] MEDS ORDERED: PHENYLEPHRINE HCL 100 MCG/ML SYR ONE (09:36)
[2018-07-22] MEDS ORDERED: fentaNYL 250 MCG/5 ML INJ ONE (09:36)
[2018-07-22] MEDS ORDERED: ROCURONIUM 50 MG/5 ML VIAL ONE (09:36)
[2018-07-22] MEDS ORDERED: LIDOCAINE 2% 100 MG/5 ML SYR ONE (09:36)
[2018-07-22] MEDS ORDERED: GLYCOPYRROLATE 0.2 MG/1 ML VIAL ONE (09:36)
[2018-07-22] MEDS ORDERED: ONDANSETRON 4 MG/2 ML VIAL ONE ×2 (09:36→13:21)
[2018-07-22] MEDS ORDERED: KETOROLAC 30 MG/1 ML SDV ONE (09:37)
[2018-07-22] MEDS ORDERED: BUPIVACAINE 0.25% 30 ML SDV ONE (09:47)
[2018-07-22] MEDS ORDERED: EPINEPHrine 1 MG/ML INJ ONE (09:47)
[2018-07-22] MEDS ORDERED: fentaNYL 100 MCG/2 ML INJ IVP ONE ×2 (10:29→13:49)
--- NOTE | 2018-07-22 10:29 | PDANEPAE ---
KARIN History of Present Illness acute on chronic cholecystitis, lap palma KARIN Past Medical History - Cardiovascular History Hx Hypertension: Yes Hx Arrhythmias: Yes Hx Chest Pain: No Hx Coronary Artery / Peripheral Vascular Disease: Yes Hx CHF / Valvular Disease: No Hx Palpitations: No Cardiovascular History Comment: ATRIAL FIB. NM/STENT 07/2017 - Pulmonary History Hx COPD: No Hx Asthma/Reactive Airway Disease: No Hx Recent Upper Respiratory Infection: No Hx Oxygen in Use at Home: Yes O2 in Use at Home (L/minute): 2 Hx Sleep Apnea: No Sleep Apnea Screening Result - Last Documented: Negative Pulmonary History Comment: WILL USE OXYGEN IF FEELS RUN DOWN - Neurologic History Hx Cerebrovascular Accident: No Hx Seizures: No Hx Dementia: No - Endocrine History Hx Diabetes: No - Renal History Hx Renal Disorders: No - Liver History Hx Hepatic Disorders: No Hepatic History Comment: GALL STONES - Neurological & Psychiatric Hx Hx Neurological and Psychiatric Disorders: No - Cancer History Hx Cancer: Yes Cancer History Comment: COLON. SKIN - Congenital Disorder History Hx Congenital Disorders: No - GI History Hx Gastrointestinal Disorders: Yes Gastrointestinal History Comment: CONSTIPATION. OCCASIONAL HEARTBURN - Other Health History Other Health History: ARTHRITIS PAIN RT FOREARM AND LOWER BACK. ANEMIA. VITAMIN B-12 DEF. INTERMITTENT LOWER EXT SWELLING - Chronic Pain History Chronic Pain: Yes (INTERMITTENT RUQ) - Surgical History Prior Surgeries: COLON RESECTION FOR CA. HYSTERECTOMY. DIAG BETHANY FRAZIER Review of Systems Review of Systems: - Exercise capacity METS (RN): 4 METS ANE Patient History - Allergies Allergies/Adverse Reactions: No Known Allergies Allergy (Verified 06/27/15 15:40) - Home Medications Home Medications: Aspirin [Aspirin 81mg (*)] 81 mg PO DAILY 07/26/17 [Last Taken 07/21/18] Compounded Estrogen Cream 1 soni VG HS 07/26/17 [Last Taken 07/25/17] Estradiol 0.5 mg PO DAILY 07/26/17 [Last Taken 07/22/18] Pantoprazole Sodium [Protonix 40mg (*)] 40 mg PO DAILY PRN 07/26/17 [Last Taken Unknown] Acyclovir PRN 07/18/18 [Last Taken Unknown] Cyclobenzaprine PRN 07/18/18 [Last Taken 07/21/18] Dulcolax Stool Softener PRN 07/18/18 [Last Taken 07/19/18] Naprosyn PRN 07/18/18 [Last Taken 07/21/18] Senna Lax PRN 07/18/18 [Last Taken 07/20/18] traMADol PRN 07/18/18 [Last Taken 07/22/18 09:15] - NPO status NPO Since - Liquids (Date): 07/22/18 NPO Since - Liquids (Time): 09:15 NPO Since - Solids (Date): 07/21/18 NPO Since - Solids (Time): 18:30 - Smoking Hx Smoking Status: Never smoked ANE Labs/Vital Signs - Vital Signs Blood Pressure: 140/63 Heart Rate: 74 Respiratory Rate: 16 O2 Sat (%): 99 Height: 163.83 cm Weight: 90.718 kg ANE Physical Exam - Airway Neck exam: FROM, increased neck circumference Mallampati Score: Class 3 Mouth exam: normal dental/mouth exam, small mouth opening - Pulmonary Pulmonary: no respiratory distress - Cardiovascular Cardiovascular: regular rate and rhythym - ASA Status ASA Status: III ANE Anesthesia Plan Anesthesia Plan: general endotracheal anesthesia
[2018-07-22] MEDS ORDERED: SUGAMMADEX SODIUM 200 MG/2 ML VIAL IVP ONE (12:33)
[2018-07-22] MEDS ORDERED: HYDROmorphONE/DILAUDID 1 MG/ML INJ IVP PRN (12:46)
--- NOTE | 2018-07-22 12:46 | POSTOPPROG ---
Post Op Note Date of Operation: 07/22/18 Surgeon: Nael Ireland Weight Loss Counselor: Rose FORDE Anesthesiologist: Ryann Anesthesia: GET(General Endotracheal) Pre-op Diagnosis: Biliary Dyskinesia Post-op Diagnosis: same Procedure: Lap palma Findings: critical view Inf/Abcess present in the surg proc area at time of surgery?: No Depth: Superfical (Skin SQ) EBL: Minimal Total fluids administered: 750cc NS washout Specimen(s): GB
[2018-07-22] MEDS ORDERED: D5W 1/2 NS W/ 20 KCl/L 1,000 ML IV SCH (13:00)
[2018-07-22] MEDS ORDERED: NS 500 ML IV PRN (13:06)
[2018-07-22] MEDS ORDERED: HYDROmorphONE/DILAUDID 2 MG/ML INJ IVP PRN (13:06)
[2018-07-22] MEDS ORDERED: MEPERIDINE 25 MG/0.5 ML AMP IVP PRN (13:06)
[2018-07-22] MEDS ORDERED: DEXAMETHASONE 4 MG/ML VIAL IVP PRN (13:06)
[2018-07-22] MEDS ORDERED: LABETALOL HCL 5 MG/ML 20 ML MDV IVP PRN (13:06)
[2018-07-22] MEDS ORDERED: NALOXONE HCL 0.4 MG/ML INJ IVP PRN (13:06)
[2018-07-22] MEDS ORDERED: fentaNYL 100 MCG/2 ML INJ ONE (13:28)
[2018-07-22] MEDS: ONDANSETRON 4 MG/2 ML VIAL IVP PRN ×2 (13:32→20:22)
[2018-07-22] MEDS: ONDANSETRON DISINTEGRATING 4 MG TAB PO PRN (14:26)
--- NOTE | 2018-07-22 14:40 | POSTANESTH ---
Post Anesthetic Evaluation Cardiovascular Status: Normal, Stable, Similar to Pre-Op Cond Respiratory Status: Normal, Stable Level of Consciousness/Mental Status: Can Participate in Eval, Mildly Sleepy, Arousable Pain Control: Adequate, Prn Tx Ordered Nausea/Vomiting Control: Adequate, Prn Tx Ordered Complications Possibly Related to Anesthesia: None Noted (Seen prior to transfer to floor out of PACU and no comp noted)
[2018-07-22] MEDS: oxyCODONE IR 5 MG TAB PO PRN (16:43)
[2018-07-22] MEDS ORDERED: traMADol 50 MG TAB PO PRN ×2 (16:54→20:30)
[2018-07-22] MEDS ORDERED: SENNOSIDES/DOCUSATE SODIUM TAB PO PRN (16:54)
[2018-07-22] MEDS ORDERED: MAGNESIUM HYDROXIDE 30 ML UDCUP PO PRN (16:54)
[2018-07-22] MEDS ORDERED: DOCUSATE SODIUM 100 MG CAP PO PRN ×2 (16:54→20:30)
--- NOTE | 2018-07-22 18:31 | GOP ---
DATE OF OPERATION: 07/22/2018 SURGEON: Nael Ireland MD RENTAL CAR DELIVERER: Rose Brody, Certified Surgical Marine Steam Fitter Helper. ANESTHESIA: General endotracheal. ANESTHESIOLOGIST: Dr. Garzon. PREOPERATIVE DIAGNOSIS: Biliary dyskinesia. POSTOPERATIVE DIAGNOSIS: Biliary dyskinesia. PROCEDURE PERFORMED: Laparoscopic cholecystectomy. FINDINGS: Minimal adhesions and gallbladder wall edema noted. Critical view was obtained. SPECIMENS: Gallbladder. ESTIMATED BLOOD LOSS: 5 cc. DESCRIPTION OF PROCEDURE: The patient was greeted in the preoperative suite. Once again, risks, gabe efits, and alternatives were discussed. Consent was signed. She was then brought back to the operat nini suite, placed on the OR table in supine position. After all anesthesia machines including SCDs w ere on and functioning, World Health [employer] time-out was performed. After successful induction of general anesthesia, the patient's abdomen was prepped and draped in typical sterile fashion. I e ntered the abdomen via a left upper quadrant cutdown in Turner's point. I inserted the Veress needle and achieved pneumoperitoneum to 15 mmHg, which was well tolerated by the patient. I then inserted a 5 mm Visiport through that site. Once successfully in the abdomen, the patient had minimal to no a dhesions from her previous surgery. I inserted a 12 mm port in the infraumbilical position. I then inserted 3 additional 5 mm trocars, 1 in the subxiphoid, 2 in the right upper quadrant, all under dir ect visualization. I retracted the gallbladder over the liver edge successfully. I turned my attent ion toward the infundibulum. I dissected it out using a combination of blunt dissection and electroc autery. I identified 2 and only 2 structures leading toward the gallbladder, first the cystic duct, which was skeletonized, and the cystic artery. I 1st clipped the duct, and divided it. I then turne d my attention toward the cystic artery and, in the same fashion, divided that sharply. I then took the gallbladder off the bed of the liver using electrocautery. It was placed in an EndoCatch bag and removed. I then inspected my clips in the right upper quadrant, all were hemostatic and in appropri ate position. I did irrigate the right upper quadrant with 500 cc sterile saline, noting clear efflu ent in the suction canister. I then removed my ports. I evacuated my pneumoperitoneum. My infraumb ilical port site was closed with an interrupted 0 Vicryl stitch. Skin was closed with Monocryl, over which Dermabond was placed. The patient was then extubated in the operative suite and taken to the PACU in satisfactory condition. DRAINS: None. COUNTS: All counts were reported as correct x2. /[id number]/MODL
[2018-07-22] MEDS: APIXABAN 5 MG TAB PO SCH (20:22)
[2018-07-22] MEDS: ACETAMINOPHEN 325 MG TAB PO PRN (20:22)
[2018-07-22] MEDS: METOPROLOL TARTRATE 50 MG TAB PO SCH (20:23)
[2018-07-22] MEDS ORDERED: MAGNESIUM HYDROXIDE PO PRN (21:00)
[2018-07-23] MEDS: ACETAMINOPHEN 325 MG TAB PO PRN ×4 (01:43→14:39)
[2018-07-23] MEDS: CYCLOBENZAPRINE 5 MG PO PRN ×2 (01:44→13:41)
[2018-07-23] MEDS ORDERED: ENOXAPARIN 40 MG/0.4 ML SYR SC SCH (09:00)
[2018-07-23] MEDS ORDERED: DOCUSATE SODIUM 100 MG CAP PO PRN (10:13)
--- NOTE | 2018-07-23 10:21 | SOAPPROG ---
SOAP Progress Note Assessment/Plan: Assessment: POD1 lap palma looks good reg diet all home meds restarted ambulate. Wants another night, home tomorrow Plan: 07/23/18 10:20 Objective: Vital Signs Temp Pulse Resp BP Pulse Ox 37.0 C 87 12 110/56 L 96 07/23/18 07:53 07/23/18 07:53 07/23/18 07:53 07/23/18 07:53 07/23/18 07:53 07/22/18 07/23/18 07/24/18 05:59 05:59 05:59 Intake Total 1440 Output Total 20 Balance 1420 ICD10 Worksheet Patient Problems: Problems Problem Status Onset Atrial fibrillation Acute Chest pain Acute Elevated troponin Acute
[2018-07-23] MEDS: ASPIRIN 81 MG CHEWABLE TAB PO SCH (10:39)
[2018-07-23] MEDS: CLOPIDOGREL BISULFATE 75 MG TAB PO SCH (10:40)
[2018-07-23] MEDS: ATORVASTATIN CALCIUM 40 MG TAB PO SCH ×2 (10:40→11:03)
[2018-07-23] MEDS: ESTRADIOL 0.5 MG TAB PO SCH (10:41)
[2018-07-23] MEDS: APIXABAN 5 MG TAB PO SCH ×2 (10:45→20:01)
[2018-07-23] MEDS: METOPROLOL TARTRATE 50 MG TAB PO SCH ×2 (10:45→20:01)
[2018-07-23] MEDS: NAPROXEN SODIUM 220 MG TAB PO PRN ×2 (11:13→20:01)
--- NOTE | 2018-07-23 14:51 | ASMTCMCOM ---
CM Note CM Note Notes: Pt admitted for surgery on gallstones, she lives alone at . CM spoke w/RN, anticipate pt will dc home when medically stable. CM available for any changes. DC Plan: Independent Date Signed: 07/23/2018 02:38 PM Electronically Signed By:Louann Metzger RN
[2018-07-23] MEDS: SIMETHICONE DROPS 30 ML BOTTLE PO PRN ×2 (17:36→22:57)
[2018-07-23] MEDS: oxyCODONE IR 5 MG TAB PO PRN ×2 (17:54→22:38)
[2018-07-24] MEDS: METOPROLOL TARTRATE 50 MG TAB PO SCH ×2 (08:41→20:51)
[2018-07-24] MEDS: ATORVASTATIN CALCIUM 40 MG TAB PO SCH (08:41)
[2018-07-24] MEDS: APIXABAN 5 MG TAB PO SCH (08:41)
[2018-07-24] MEDS: ESTRADIOL 0.5 MG TAB PO SCH (08:41)
[2018-07-24] MEDS: ASPIRIN 81 MG CHEWABLE TAB PO SCH (08:41)
[2018-07-24] MEDS: CLOPIDOGREL BISULFATE 75 MG TAB PO SCH (08:41)
[2018-07-24] MEDS: ACETAMINOPHEN 325 MG TAB PO PRN ×2 (08:46→15:09)
[2018-07-24] MEDS: MAGNESIUM HYDROXIDE 30 ML UDCUP PO PRN ×2 (08:47→17:38)
[2018-07-24] MEDS: SIMETHICONE DROPS 30 ML BOTTLE PO PRN ×3 (08:50→20:52)
[2018-07-24] MEDS ORDERED: NS 1,000 ML IV ONE (12:00)
--- NOTE | 2018-07-24 12:50 | SOAPPROG ---
SOAP Progress Note Assessment/Plan: Assessment: POD2 belen waldrop she is doing well s/p belen waldrop has a lot a medical comorbidities which will likely not resolve this hospital stay consulting IM for a-fib assistance. Delaying DC Plan: 07/23/18 10:20 07/24/18 12:49 Subjective: wants to have her IV fluids restarted. Wants to stay in the hospital as long as she can Objective: Vital Signs Temp Pulse Resp BP Pulse Ox 36.6 C 87 16 108/60 98 07/24/18 11:13 07/24/18 12:40 07/24/18 12:40 07/24/18 12:40 07/24/18 12:40 07/23/18 07/24/18 07/25/18 05:59 05:59 05:59 Intake Total 1440 350 Output Total 20 Balance 1420 350 ICD10 Worksheet Patient Problems: Problems Problem Status Onset Atrial fibrillation Acute Chest pain Acute Elevated troponin Acute
[2018-07-24 13:38] LABS: PLATELET COUNT 452 10^3/uL (150-400)
--- NOTE | 2018-07-24 16:04 | GCON ---
DATE OF CONSULTATION: 07/24/2018 REFERRING PHYSICIAN: Nael Ireland MD REASON FOR CONSULTATION: Atrial fibrillation with RVR, acute blood loss anemia. HPI: A 73-year-old female with history of NSTEMI, status post PCI to the OM, paroxysmal atrial fibrillation, hypertension, hyperlipidemia who underwent cholecystectomy 07/22/2018. She was walking at 11:00 a.m. and went into rapid atrial fibrillation with heart rate in 120s-130s and flet dizzy. Reports mild left-sided chest pain, pressure-like without radiation or numbness, or tingling. Had a little bit of shortness of breath. She then had a very large bowel movement after several laxatives and states it was black. I personally saw stool, it was brown. Currently, she denies any abdominal pain, dizziness, or lightheadedness. No current chest pain, shortness of breath or palpitations. No nausea, vomiting. H/H this morning was 5.2/17. Most previous was 7.2/22 on 06/20/2018 prior to surgery. Was taking Naproxen BID for several weeks. At home, she intermittently gets chest pain with exertion along with shortness of breath, but it was difficult to quantify as patient is tangential during my interview. Has mild lower extremity edema at baseline. REVIEW OF SYSTEMS: I completed a 10-point review of systems and negative except as noted in HPI. PAST MEDICAL HISTORY: 1. Hyperlipidemia. 2. Hypertension. 3. NSTEMI. 4. ACS with stent to the OM in July 2017. 5. Paroxysmal atrial fibrillation. 6. GERD. 7. Echocardiogram 08/09/2017: EF 75%. No wall motion abnormalities. Minimal TR. 8. Colon cancer. PAST SURGICAL HISTORY: 1. Partial colectomy. 2. Hysterectomy. FAMILY HISTORY: Cancer and CA. SOCIAL HISTORY: She is in independent living at [facility]. No alcohol, tobacco, or illicits. HOME MEDICATIONS: Tramadol 50 mg q.4 hours p.r.n., oxycodone 5-10 mg q.6 hours p.r.n., senna, naproxen 500 mg twice daily p.r.n., multivitamin, metoprolol 50 mg b.i.d., milk of magnesia as needed, Dulcolax, Flexeril 5 mg b.i.d., estrogen cream, Plavix 75 mg daily, atorvastatin 40 mg daily, aspirin 81, Eliquis 5 mg b.i.d., Tylenol. ALLERGIES: No known drug allergies. PHYSICAL EXAMINATION: VITAL SIGNS: Temperature 36.6. Blood pressure was 69/50 's; repeat was 108/60 after a bolus. Heart rates 88 to 120s, per nurse. Respirations 16. 98% on 2 L. GENERAL: Lying in bed, in no acute distress, pale. HEENT: PERRLA. Mildly dry mucous membranes. CV: Irregularly, irregular. Trace pedal edema. ABDOMEN: Soft, mildly distended. Surgical incisions are clean, dry, and intact. Positive bowel sounds throughout. : No Antoine. MUSCULOSKELETAL: 5/5 upper and lower extremity strength. NEURO: 2 through 12 intact. PSYCH: She is alert and oriented x3, but tangential, difficult to keep on point when questioning. LABS: WBC 17, hemoglobin 5.2, hematocrit 17, platelets 452. Most recent H/H 7.12/12 on June 20. Sodium and LFTs are pending. Troponin 0.077. CT abdomen, pelvis 06/09/2018: Showed cholelithiasis. EKG is personally reviewed by me: Atrial fibrillation with ST depression anterior leads with repolarization. ASSESSMENT AND PLAN: 1. Acute blood loss anemia: Hb prior to surgery was low 7. Suspect due to surgery while on anti-platelet and anticoagulation. Has been taking Naproxen, so consider ulcer, however normal stool and negative FOBT. Transfuse 2 units of blood now. Blood pressure stable. Transfusion goal >8 with CAD disease. Can consider endoscopy. IV PPI. 2. Hypotension: normalized after IVFs. Transfusing 2 units now. 3. NSTEMI: demand ischemia in the setting of severe anemia and hypotension. Initial troponin 0.077. She had mild chest pain, but none now. We will repeat troponin, EKG, monitor on telemetry. Stat echo. 4. s/p cholecystectomy: spoke with Dr. Ireland, who agrees with transfusion and plan as stated above. If she does not respond, image with abdominal CT. 5. Diet: Clears. DISPOSITION: We will transfer to a step-down unit for further monitoring. Critical care time spent: 45 minutes bedside with patient, reviewing records, imaging, and discussing case with Dr. Ireland. We will follow along, please call if any questions. /[id number]/MODL MTDD
--- NOTE | 2018-07-24 16:08 | CPEKG ---
Test Reason : OPEN Blood Pressure : / mmHG Vent. Rate : 122 BPM Atrial Rate : 000 BPM P-R Int : 144 ms QRS Dur : 078 ms QT Int : 279 ms P-R-T Axes : 000 071 251 degrees QTc Int : 398 ms Atrial fibrillation Repol abnrm suggests ischemia, anterolateral Compared with 07/29/2017 AF and repol abnl now seen Confirmed by Halima Rivero ([id number]) on 07/24/2018 4:07:37 PM Referred By: Confirmed By:Halima Rivero
[2018-07-24] MEDS ORDERED: METOPROLOL TARTRATE 5 MG/5 ML INJ IVP PRN (17:01)
--- NOTE | 2018-07-24 17:18 | PDMN ---
Medical Necessity Medical necessity: Change to inpt as of 07/24/18 @ 1526. Pt meets inpt criteria per MD order and MCG M-505, Atrial Fibrillation. 73 y/o s/p lap cholecystectomy on 07/22 now w/acute blood loss anemia w/H&H 5.2, 17 requiring blood transfusion. Hypotensive and Afib w/RVR w/ HR 120's, troponin elev and trending up, cp this AM. Transfer to SDU monitoring, ECHO pending, IVF, bl transfusion, anticpate>2MN for ongoing med nec eval/treatment.
--- NOTE | 2018-07-24 17:28 | ECHO ---
[email or web address] [address] [address] Main: [phone] Fax: Transthoracic Echocardiogram Name: KARISSA KARIMI MR#: [id number] Study Date: 07/24/2018 Study Time: 03:37 PM Date of : 1945 Age: 73 year(s) Height: 162.6 cm (64 in.) Weight: 90.72 kg (200 lb.) BSA: 1.96 m2 Gender: Female Examination: Echo Indication: Eval for WMA, new onset A-fib Image Quality: Contrast: Requested by: Sanjana Vasquez BP: 141 mmHg/86 mmHg Heart Rate: Rhythm: Atrial fibrillation Indication: Eval for WMA, new onset A-fib Procedure Staff Psychic Reader: Jw Brizuela RDCS Reading Physician: Jignesh Lloyd MD Requesting Provider: Conclusions: Normal size left ventricle. Normal global systolic LV function. EF is 73 %. No regional wall motion abnormality. Normal diastolic LV function. Trivial mitral valve regurgitation. Mild tricuspid regurgitation is present. The pulmonary artery pressure is severely increased. There are no significant valvular abnormalities. Measurements: Chambers Valvular Assessment AV/MV Valvular Assessment TV/PV Normal Normal Normal Name Value Range Name Value Range Name Value Range Ao Elise (MM): 2.2 cm (2.2 cm-3.7 AV Vmax: 1.25 m/s (1 m/s-1.7 TR Vmax: 4.28 mm/s ( - ) cm) m/s) TR PGmax: 73 mmHg ( - ) IVSd (2D): 1.2 cm (0.6 cm-1.1 AV maxP mmHg ( - ) syst. PAP: 78 mmHg ( - ) cm) LVOT Vmax: 0.86 m/s (0.7 m/s-1.1 PV Vmax: 1.09 m/s (0.6 m/s-0.9 LVDd (2D): 3.7 cm (3.9 cm-5.3 m/s) m/s) cm) MV E Vmax: 0.90 m/s ( - ) PV PGmax: 5 mmHg ( - ) LVDs (2D): 2.2 cm (2.1 cm-4 cm) LVPWd (2D): 1.1 cm ( - ) LVEF (2D): 73 (>=54 %) Continued Measurements: Chambers Valvular Assessment AV/MV Valvular Assessment TV/PV Name Value Name Value Name Value Patient: KARISSA KARIMI Study Date: 07/24/2018 Page 1 of 2 03:37 PM LADs Lon.6 cm MV E' Septal: 0.09 m/s CVP (est.): 5 mmHg LA Area: 12.7 cm2 MV E/E' Septal: 10.20 MV E/E' Lateral: 6.90 Findings: Left Ventricle: Normal size left ventricle. No LV hypertrophy. Normal global systolic LV function. EF is 73 %. No regional wall motion abnormality. Normal diastolic LV function. Right Ventricle: Normal size right ventricle. Normal RV function. Left Atrium: The left atrium is normal in size. Right Atrium: The right atrium is normal in size. Mitral Valve: The mitral valve is normal in appearance and function. Trivial mitral valve regurgitation. Aortic Valve: The aortic valve is tri-leaflet. The aortic valve is normal in appearance. Tricuspid Valve: The tricuspid valve appears normal. Mild tricuspid regurgitation is present. The pulmonary artery pressure is severely increased. Pulmonic Valve: The pulmonic valve is normal in appearance and function. Aorta: The aorta is normal. Pericardium: No pericardial effusion. (No Signature Object) Patient: KARISSA KARIMI Study Date: 07/24/2018 Page 2 of 2 03:37 PM [id number]
[2018-07-24] MEDS: CYCLOBENZAPRINE 5 MG PO PRN (17:36)
[2018-07-24] MEDS ORDERED: METOPROLOL TARTRATE 5 MG/5 ML INJ IVP SCH (18:00)
[2018-07-24] MEDS: NS 1,000 ML IV SCH (18:43)
[2018-07-24] MEDS: oxyCODONE IR 5 MG TAB PO PRN (20:50)
[2018-07-24] MEDS: PANTOPRAZOLE SODIUM 40 MG VIAL IVP SCH (20:51)
[2018-07-25] MEDS ORDERED: CYCLOBENZAPRINE 10 MG TAB PO PRN (08:00)
--- NOTE | 2018-07-25 09:34 | HOSPPROG ---
Hospitalist Progress Note Assessment/Plan: * Acute blood loss anemia s/p 2 units PRBC -no pre-op H/H, although check 06/20 with PCP showed new anemia -last GI work-up at time of her colon cancer diagnosis almost 10 years ago -suspect upper GI given history of black stool -takes ASA/Plavix/Eliquis + Naproxen at home -held ASA/Plavix/Eliquis for 3 days prior to surgery -suspect expected post-op blood loss, but went into surgery very low -d/w Dr. Smallwood - consider EGD +/- repeat colonoscopy -continue IV PPI * s/p palma * CAD s/p stent OM Jul 2017 -still on ASA + Plavix * Chest pain with troponin elevation -suspect demand ischemia due to severe anemia + rapid afib * PAF - now back NSR -resume Eliquis once GI work-up complete Subjective: Denies new complaint other than weakness. Feels better after blood transfusion Objective: Vital Signs Temp Pulse Resp BP Pulse Ox 36.8 C 66 14 97/44 L 99 07/24/18 20:00 07/25/18 04:00 07/25/18 04:00 07/25/18 04:00 07/25/18 04:00 Laboratory Results 07/25/18 06:35 07/25/18 06:35 07/24/18 07/25/18 07/26/18 05:59 05:59 05:59 Intake Total 350 2150 Balance 350 2150 Reviewed old chart regarding cardiac cath and previous anemia w/u tele - NSR ECHO - negative - Physical Exam Constitutional: no apparent distress, appears nourished, not in pain Cardiovascular: regular rate and rhythym, no murmur, rub, or gallop Respiratory: no respiratory distress, no rales or rhonchi, clear to auscultation Gastrointestinal: normoactive bowel sounds, soft, non-tender abdomen, no palpable masses Skin: no rashes or abrasions, no fluctuance, no induration Neurologic: AAOx3, sensation intact bilaterally Psychiatric: interacting appropriately, not anxious, not encephalopathic, thought process linear ICD10 Worksheet Patient Problems: Problems Problem Status Onset Atrial fibrillation Acute Chest pain Acute Elevated troponin Acute
--- NOTE | 2018-07-25 09:56 | ASMTCMCOM ---
CM Note CM Note Notes: Patient required a blood transfusion 2 units, due to acute blood loss anemia. She also has chest pain with troponin elevation. OT/PT ordered today. D/C plan TBD at this time. CM will follow. Date Signed: 07/25/2018 09:55 AM Electronically Signed By:Cristina Harris LCSW
[2018-07-25] MEDS: ESTRADIOL 0.5 MG TAB PO SCH (10:03)
[2018-07-25] MEDS: ATORVASTATIN CALCIUM 40 MG TAB PO SCH ×2 (10:03→10:40)
[2018-07-25] MEDS: METOPROLOL TARTRATE 50 MG TAB PO SCH ×2 (10:03→21:34)
[2018-07-25] MEDS: PANTOPRAZOLE SODIUM 40 MG VIAL IVP SCH ×2 (10:04→21:34)
[2018-07-25] MEDS: ACETAMINOPHEN 325 MG TAB PO PRN (11:30)
--- NOTE | 2018-07-25 13:26 | PDCARCONS ---
Cardiology Consult Reason for Consult: CAD, anemia, type [address] elevation myocardial infarction. Chief Complaint: Palpitations, chest pain following elective cholecystectomy. Requesting Physician: Dr. Krystina Laughlin. History of Present Illness: This is a 73-year-old female who has a history of known coronary artery disease , paroxysmal atrial fibrillation, hypertension and hyperlipidemia. As an outpatient she is typically followed by Dr. Salvador Desai. She initially presented in July of 2017 with atrial fibrillation, rapid ventricular response, chest discomfort and elevated cardiac biomarkers. Because of this, she was taken to cardiac catheterization on 07/27/2017. At that time, it was noted that she had a 90% lesion involving a 2nd obtuse marginal branch. The remainder of her coronary tree contained luminal irregularities. Her ejection fraction was normal. She underwent percutaneous intervention of the obtuse marginal branch with placement of a 2.5 x 16 mm synergy stent. Since then she has been treated with dual anti-platelet therapy. Additionally, she has been on systemic anticoagulation in the form of Eliquis. Because of significant arthritic pain she also uses Naprosyn on a fairly regular basis. She underwent elective cholecystectomy on July 22. It should be noted that labs drawn immediately prior to performance of the cholecystectomy indicated a hemoglobin of 7 mg/dL. Shortly after undergoing cholecystectomy , on the morning of July 24, she developed atrial fibrillation with a rapid ventricular response associated with symptoms of chest and scapular pain. She had very mild shortness of breath. Fortunately, this event was self-limited and she lapsed back into sinus rhythm. In reviewing her ECG at that time, she was in atrial fibrillation with a resting heart rate of 122 beats per minute associated with diffuse ST/T depressions. She has been symptom free since then. She has received several units of packed red blood cells with an improvement in her H&H. Since this initial event she has not had any recurrent symptoms. She has noted antecedent symptoms of effort intolerance and rapid heart rates. She has had mild chest pain and tachycardia with modest physical activities noted at home prior to this hospitalization. She has not had any resting episodes of chest pain or palpitations. Dual anti-platelet therapy has been discontinued as has systemic anticoagulation. History Information - Allergies/Home Medication List Allergies/Adverse Reactions: No Known Allergies Allergy (Verified 06/27/15 15:40) Home Medications: Aspirin [Aspirin 81mg (*)] 81 mg PO DAILY 07/26/17 [Last Taken 07/21/18] Compounded Estrogen Cream 1 soni VG HS 07/26/17 [Last Taken 07/25/17] Estradiol 0.5 mg PO DAILY 07/26/17 [Last Taken 07/22/18] Docusate Sodium [Dulcolax Stool Softener] 100 mg PO DAILY PRN 07/18/18 [Last Taken 07/19/18] Naproxen [Naprosyn] 500 mg PO BID PRN 07/18/18 [Last Taken 07/21/18] Sennosides/Docusate Sodium [Docusate Sodium-Sennosides Tab] 1 each PO BID PRN [Last Taken 07/20/18] traMADol [Ultram 50 mg (*)] 50 mg PO Q4 PRN 07/18/18 [Last Taken 07/22/18 09:15] Acetaminophen [Tylenol ES 500 mg (*)] 500 mg PO Q4H PRN 07/22/18 [Last Taken 12/08] Clopidogrel Bisulfate [Plavix (*)] 75 mg PO DAILY 07/22/18 [Last Taken 07/18/18] Cyclobenzaprine [Cyclobenzaprine HCl] 5 mg PO BID PRN 07/22/18 [Last Taken Unknown] Magnesium Hydroxide [Milk of Magnesia] 30 ml PO DAILY PRN 07/22/18 [Last Taken Unknown] I have personally reviewed and updated: family history, medical history, social history, surgical history Past Medical History: Paroxysmal atrial fibrillation, coronary artery disease, hypertension, hyperlipidemia, osteoarthritis, history of colon cancer, GERD. - Surgical History Additional surgical history: Partial colectomy, hysterectomy, recent cholecystectomy. - Family History Positive for: non-pertinent - Social History Smoking Status: Never smoked Alcohol Use: Occasionally Drug Use: None Additional social history: She likes to walk for exercise. Age [age] Years[age] Sex: Female Congestive Heart Failure History: No Hypertension History: Yes Stroke/TIA/Thromboembolism History: No Vascular Disease History: Yes Diabetes Mellitus: No [id number] Score: 4 Physical Exam Physical Exam: Temp Pulse Resp BP Pulse Ox 36.7 C 64 14 123/68 H 92 07/25/18 11:38 07/25/18 11:38 07/25/18 11:38 07/25/18 11:38 07/25/18 11:38 O2 (L/minute) 2 Constitutional: no apparent distress, appears nourished, not in pain Eyes: PERRL, anicteric sclera, EOMI Ears, Nose, Mouth, Throat: moist mucous membranes, hearing normal, ears appear normal, no oral mucosal ulcers Cardiovascular: regular rate and rhythym, no murmur, rub, or gallop, No edema Respiratory: no respiratory distress, no rales or rhonchi, clear to auscultation Gastrointestinal: normoactive bowel sounds, soft, non-tender abdomen, no palpable masses Genitourinary: no bladder fullness, no bladder tenderness Skin: warm, normal color, no rashes or abrasions, no fluctuance, no induration, No mottled Musculoskeletal: full muscle strength, no muscle tenderness, normal joint ROM, no joint effusions Psychiatric: interacting appropriately, not anxious, not encephalopathic, thought process linear Lymph, Heme, Immunologic: no cervical LAD, no supraclavicular LAD Lab and Imaging 07/25/18 06:35 07/25/18 06:35 WBC 11.41 10^3/uL (3.80-9.50) H 07/25/18 06:35 RBC 3.04 10^6/uL (4.18-5.33) L 07/25/18 06:35 Hgb 8.0 g/dL (12.6-16.3) L 07/25/18 06:35 Hct 24.8 % (38.0-47.0) L 07/25/18 06:35 MCV 81.6 fL (81.5-99.8) 07/25/18 06:35 MCH 26.3 pg (27.9-34.1) L 07/25/18 06:35 MCHC 32.3 g/dL (32.4-36.7) L 07/25/18 06:35 RDW 16.0 % (11.5-15.2) H 07/25/18 06:35 Plt Count 415 10^3/uL (150-400) H 07/25/18 06:35 MPV 9.4 fL (8.7-11.7) 07/24/18 12:40 Neut % (Auto) 80.2 % (39.3-74.2) H 07/24/18 12:40 Lymph % (Auto) 8.5 % (15.0-45.0) L 07/24/18 12:40 Rains % (Auto) 9.9 % (4.5-13.0) 07/24/18 12:40 Eos % (Auto) 0.4 % (0.6-7.6) L 07/24/18 12:40 Baso % (Auto) 0.2 % (0.3-1.7) L 07/24/18 12:40 Nucleat RBC Rel Count 0.2 % (0.0-0.2) 07/24/18 12:40 Absolute Neuts (auto) 14.21 10^3/uL (1.70-6.50) H 07/24/18 12:40 Absolute Lymphs (auto) 1.51 10^3/uL (1.00-3.00) 07/24/18 12:40 Absolute Monos (auto) 1.75 10^3/uL (0.30-0.80) H 07/24/18 12:40 Absolute Eos (auto) 0.07 10^3/uL (0.03-0.40) 07/24/18 12:40 Absolute Basos (auto) 0.04 10^3/uL (0.02-0.10) 07/24/18 12:40 Absolute Nucleated RBC 0.04 10^3/uL (0-0.01) H 07/24/18 12:40 Immature Gran % 0.8 % (0.0-1.1) 07/24/18 12:40 Immature Gran # 0.14 10^3/uL (0.00-0.10) H 07/24/18 12:40 Platelet Estimate INCREASED (ADEQ) H 07/24/18 12:40 Polychromasia 1+ H 07/24/18 12:40 Hypochromasia 2+ H 07/24/18 12:40 Microcytic Cells 1+ H 07/24/18 12:40 Oval Macrocytes 1+ H 07/24/18 12:40 Smear Review By Yarelis MENDEZ MD 07/24/18 12:40 Sodium 135 mEq/L (135-145) 07/25/18 06:35 Potassium 4.7 mEq/L (3.3-5.0) 07/25/18 06:35 Chloride 107 mEq/L (97-110) 07/25/18 06:35 Carbon Dioxide 22 mEq/l (22-31) 07/25/18 06:35 Anion Gap 6 mEq/L (8-16) L 07/25/18 06:35 BUN 13 mg/dL (7-23) 07/25/18 06:35 Creatinine 0.7 mg/dL (0.6-1.0) 07/25/18 06:35 Estimated GFR > 60 07/25/18 06:35 Glucose 92 mg/dL (70-100) 07/25/18 06:35 Calcium 7.8 mg/dL (8.5-10.4) L 07/25/18 06:35 Troponin I 0.104 ng/mL (0.000-0.034) H 07/24/18 21:45 Stool Occult Bld Scrn NEGATIVE (NEGATIVE) 07/24/18 14:00 Patient ABO/Rh O POSITIVE 07/24/18 13:40 Antibody Screen NEGATIVE 07/24/18 13:40 Crossmatch IS Only See Detail 07/24/18 13:40 Visualized and Interpreted Chest x-ray results: No Visualized and Interpreted imaging results: Yes Interpretation: The most recent ECG demonstrates atrial fibrillation without significant ST/T changes. Echocardiogram: There is a full and separately detailed report on the chart. A/P Assessment: 1. Status post elective cholecystectomy without apparent significant complications from this procedure. 2. Antecedent anemia fairly profound in nature. Etiology at this point is unclear. Most likely from a gastrointestinal source possibly peptic ulcer disease or gastritis in the setting of dual anti-platelet therapy, systemic anticoagulation and ongoing NSAID use. 3. Paroxysmal atrial fibrillation. Recurrent episode of atrial fibrillation with a rapid ventricular response noted in the early postoperative setting following her recent cholecystectomy. Her chads Vasc score is 4. As an outpatient she was appropriately on systemic anticoagulation with Eliquis. 4. Coronary artery disease. As noted above she underwent percutaneous revascularization and stenting of an obtuse marginal branch in July of 2017. During this hospitalization in the setting of severe anemia and atrial fibrillation with a rapid ventricular response she suffered a type [address] elevation myocardial infarction. This appears to have been a very small event. Troponin levels were very low and her echocardiogram did not demonstrate significant wall motion abnormalities. 5. Hypertension. 6. Hyperlipidemia. Plan: At this point, she appears to be stable and doing well in sinus rhythm without ongoing active symptoms. 1. I agree with cessation of dual anti-platelet therapy and Eliquis pending further evaluation of her GI tract. 2. It sounds as if she is being prepped for a gastrointestinal evaluation tomorrow. 3. I do not think she requires any further cardiovascular testing today. At some point, following discharge, I think it would be worthwhile to have her undergo stress myocardial perfusion imaging. 4. Continue beta-blockers. 5. I will order an ECG to be done today now that she is back in sinus rhythm. 6. We will follow along with you. Review of Systems Review of Systems: - Review of Systems Constitutional: no symptoms reported EENTM: no symptoms reported Respiratory: see HPI Gastrointestinal/Abdominal: abdominal pain, abdominal distention, constipation Genitourinary: no symptoms Musculoskelatal: no symptoms Skin: no symptoms Neurological: no symptoms Hematologic/Lymphatic: no symptoms reported Immunologic/allergic: no symptoms reported All Other Systems: Reviewed and Negative
--- NOTE | 2018-07-25 17:05 | GCON ---
DATE OF CONSULTATION: 07/25/2018 CONSULTING PHYSICIAN: Danna Laughlin MD. REASON FOR CONSULTATION: Melanotic stool/anemia. CHIEF COMPLAINT: Melenic stools. HISTORY OF PRESENT ILLNESS: The patient is a 73-year-old female with multiple medical problems, including atrial fibrillation, coronary artery disease, history of colon caner who presented to [facility] on 07/22/18 with gallbladder dysfunction requiring a cholecystectomy. The patient states that she has had black stools for the last several months. She is on NSAIDs. She describes 1-2 bowel movements a day that are black in nature. She thought this was due to her use of milk of magnesia. She denies any alleviating factors. On March 10, 2018, she had a hemoglobin of 12.5. On blood work on 07/24, she had a hemoglobin of 6.4 and was transfused. The patient has had a history of colon cancer with a right hemicolectomy in 2008. She has not had colonoscopic evaluation since 2012. I am being asked by Dr. Laughlin to evaluate the patient in consultation regarding her posthemorrhagic anemia/melanotic stools. PAST MEDICAL HISTORY: 1. Coronary artery disease. 2. Hypertension. 3. Hyperlipidemia. 4. Atrial fibrillation. 5. Gastroesophageal reflux disease. 6. Colon cancer. PAST SURGICAL HISTORY: 1. Right hemicolectomy. 2. Hysterectomy. MEDICATIONS: Tramadol, oxycodone, senna, naproxen, multivitamin, metoprolol, milk of magnesia, Dulcolax, Flexeril, estrogen, Plavix, atorvastatin, aspirin, Eliquis. ALLERGIES: NKDA. SOCIAL HISTORY: No significant alcohol or tobacco use. FAMILY HISTORY: Maternal grandmother: Colon cancer. REVIEW OF SYSTEMS: A 14-point comprehensive review of systems was asked. Pertinent positives and negatives per HPI. She has had some shortness of breath on exercise. PHYSICAL EXAMINATION: VITAL SIGNS: Blood pressure 150/65, pulse 72, respirations 18, temperature is 36.7. GENERAL: Awake, alert, and oriented x3. No distress. HEENT: Anicteric. Moist mucosa. NECK: No JVD. CARDIOVASCULAR: Regular rate and rhythm. Positive S1, S2. No gallops appreciated. LUNGS: Clear to auscultation bilaterally. No wheezes, rales, or rhonchi. ABDOMEN: Soft, nontender, nondistended. Positive bowel sounds. No guarding. No rebound. EXTREMITIES: No clubbing, cyanosis, or edema. NEUROLOGIC: 2 through 12 grossly intact. PSYCH: Normal affect. SKIN: No rash. MUSCULOSKELETAL: No obvious joint deformities. LABORATORY DATA: Blood work: WBCs 11.4, hemoglobin 8.0, hematocrit 24.8, MCV 81.6, RDW 16, platelets 415. INR 1.12. Sodium 135, potassium 4.7, creatinine 0.7. ASSESSMENT AND PLAN: 1. Anemia: Suspect iron deficiency. Does have melanotic stools. Has had a history of colon cancer, and has not had her surveillance. At this time, recommend to proceed with upper endoscopy, as well as colonoscopy, to delineate the cause of her symptoms. The risks of infection, bleeding, perforation, and sedation were discussed. Due to her coronary artery disease with atrial fibrillation, she is at increased risk of sedation, and we will consult Anesthesia. 2. Coronary artery disease: With a [id number] elevation myocardial infarction. 3. Hypertension. 4. Hyperlipidemia. 5. Atrial fibrillation. Thank you very much for this consultation. /[id number]/MODL MTDD
--- NOTE | 2018-07-25 17:18 | CPEKG ---
Test Reason : OPEN Blood Pressure : / mmHG Vent. Rate : 108 BPM Atrial Rate : 000 BPM P-R Int : 184 ms QRS Dur : 084 ms QT Int : 317 ms P-R-T Axes : 000 045 -03 degrees QTc Int : 425 ms Atrial fibrillation Low voltage, precordial leads Compared with 07/24/2018 repol abnl improved Confirmed by Halima Rivero ([id number]) on 07/25/2018 5:17:35 PM Referred By: Confirmed By:Halima Rivero
--- NOTE | 2018-07-25 17:30 | CPEKG ---
Test Reason : OPEN Blood Pressure : / mmHG Vent. Rate : 068 BPM Atrial Rate : 068 BPM P-R Int : 138 ms QRS Dur : 090 ms QT Int : 409 ms P-R-T Axes : 079 067 011 degrees QTc Int : 436 ms Sinus rhythm Probable left atrial enlargement Low voltage, precordial leads Compared 07/24/2018 at 16:22 NSR has been restored Confirmed by Halima Rivero ([id number]) on 07/25/2018 5:30:10 PM Referred By: Confirmed By:Halima Rivero
[2018-07-26] MEDS: ACETAMINOPHEN 325 MG TAB PO PRN ×2 (00:04→23:37)
[2018-07-26 07:34] LABS: PLATELET COUNT 447 10^3/uL (150-400)
--- NOTE | 2018-07-26 08:26 | SOAPPROG ---
SOAP Progress Note Assessment/Plan: Assessment: 1. Coronary artery disease. She is 1 year out from PCI/stenting of an obtuse marginal branch in the setting of clinical presentation with atrial fibrillation /RVR and a type [address] elevation myocardial infarction. 2. Paroxysmal atrial fibrillation. As noted above, she suffered a type [address] elevation myocardial infarction a year ago that led to discovery of her mild CAD. She had a recurrent event earlier this hospitalization which was self- limited. Her chads Vasc score is 4 consistent with a significantly elevated risk for stroke. As such, as an outpatient, she was appropriately systemically anticoagulated. 3. Type [address] elevation myocardial infarction. During this hospitalization in the setting of profound anemia and recurrent a-fib/RVR she suffered a recurrent small non ST elevation OK. This is likely on the basis of supply demand mismatch in the setting of profound anemia and tachycardia. Currently, there is no indication of ongoing ischemia. 4. Hypertension. 5. Hyperlipidemia. 6. Iron deficiency anemia. This was noted on admission for elective cholecystectomy. She does have a history of anti-platelet therapy and systemic anticoagulation use in the setting of nonsteroidal use. Currently she appears to be stable following transfusion and cessation of anti-platelet and anticoagulation therapies. There are plans for further GI workup. 7. Status post cholecystectomy. Plan: 1. Continue metoprolol. 2. Continue to hold anti-platelet and anticoagulant therapies pending completion of her GI workup. 3. Continue telemetry monitoring. 4. We will follow along. 07/26/18 08:22 Subjective: Today, she has no complaints. Specifically, she denies palpitations and chest discomfort. She has been hemodynamically stable throughout the evening. No arrhythmias are identified on telemetry. Apparently, there are plans for her to undergo further gastrointestinal evaluation today. Objective: Vital Signs Temp Pulse Resp BP Pulse Ox 36.4 C 71 14 150/63 H 97 07/26/18 07:43 07/26/18 07:43 07/26/18 07:43 07/26/18 07:43 07/26/18 07:43 Laboratory Results 07/26/18 07:15 07/25/18 06:35 07/25/18 07/26/18 07/27/18 05:59 05:59 05:59 Intake Total 2150 Balance 2150 Laboratory Tests 07/24/18 07/24/18 07/24/18 11:40 16:15 16:15 Hct 20.6 L Troponin I 0.077 H 0.112 H 07/24/18 07/24/18 07/25/18 21:45 21:45 06:35 Hct 25.9 L 24.8 L Troponin I 0.104 H 07/26/18 07:15 Hct 25.9 L Troponin I Physical Exam - Physical Exam General Appearance: WD/WN, alert, no apparent distress EENT: PERRL/EOMI, normal ENT inspection, pharynx normal, TMs normal Neck: non-tender, full range of motion, supple, normal inspection Respiratory: chest non-tender, lungs clear, normal breath sounds Cardiac/Chest: normal peripheral pulses, regular rate, rhythm Peripheral Pulses: 2+: carotid (R), carotid (L), femoral (R), femoral (L), dorsalis-pedis (R), dorsalis-pedis (L) Abdomen: normal bowel sounds, non-tender, soft Pelvic Exam: deferred Rectal: deferred Back: Normal inspection Skin: normal color, warm/dry Lymphatic: no adenopathy Extremities: normal range of motion, non-tender, normal inspection, normal capillary refill Neuro/Psych: no motor/sensory deficits, alert, normal mood/affect, oriented x 3 ICD10 Worksheet Patient Problems: Problems Problem Status Onset Atrial fibrillation Acute Chest pain Acute Elevated troponin Acute
--- NOTE | 2018-07-26 09:56 | SOAPPROG ---
SOAP Progress Note Assessment/Plan: Assessment: POD4 lap palma continues to make progress upper and lower scopes today Hb has been stable appreciate IM assistance Plan: 07/23/18 10:20 07/24/18 12:49 07/26/18 09:55 Subjective: feeling well Objective: Vital Signs Temp Pulse Resp BP Pulse Ox 36.4 C 71 14 150/63 H 97 07/26/18 07:43 07/26/18 07:43 07/26/18 07:43 07/26/18 07:43 07/26/18 07:43 Laboratory Results 07/26/18 07:15 07/25/18 06:35 07/25/18 07/26/18 07/27/18 05:59 05:59 05:59 Intake Total 2150 Balance 2150 ICD10 Worksheet Patient Problems: Problems Problem Status Onset Atrial fibrillation Acute Chest pain Acute Elevated troponin Acute
--- NOTE | 2018-07-26 10:13 | SOAPPROG ---
SOAP Progress Note Assessment/Plan: Assessment: 1. AKHIL. 2. PHx of colon cancer. 3. ASCVD; cleared by cardiology for GI work-up. Plan: 1. Clears po today, NPO after MN. 2. Colyte prep today. 3. EGD/Colonoscopy tomorrow at 9 am. Alfa Cesar MD 07/26/18 10:10 Subjective: CC: AKHIL. Interval PHI: Patient without c/o nausea or abdominal pain. No BM. No chest pain or SOB. On clears po. Cards have cleared her for GI work-up. Objective: Vital Signs Temp Pulse Resp BP Pulse Ox 36.4 C 71 14 150/63 H 97 07/26/18 07:43 07/26/18 07:43 07/26/18 07:43 07/26/18 07:43 07/26/18 07:43 Laboratory Results 07/26/18 07:15 07/25/18 06:35 07/25/18 07/26/18 07/27/18 05:59 05:59 05:59 Intake Total 2150 Balance 2150 Physical Exam - Physical Exam General Appearance: WD/WN, alert, no apparent distress Respiratory: lungs clear, normal breath sounds Cardiac/Chest: regular rate, rhythm Abdomen: normal bowel sounds, non-tender, soft Skin: normal color, warm/dry Neuro/Psych: alert, normal mood/affect, oriented x 3 ICD10 Worksheet Patient Problems: Problems Problem Status Onset Atrial fibrillation Acute Chest pain Acute Elevated troponin Acute
[2018-07-26] MEDS ORDERED: PEG 3350/NA SULF,BICARB,CL/KCL (GAVILYTE-G) 4000 ML BTL PO ONE ×2 (10:14→14:30)
[2018-07-26] MEDS: ATORVASTATIN CALCIUM 40 MG TAB PO SCH (13:06)
[2018-07-26] MEDS: ESTRADIOL 0.5 MG TAB PO SCH (13:08)
[2018-07-26] MEDS: METOPROLOL TARTRATE 50 MG TAB PO SCH ×2 (13:10→19:55)
[2018-07-26] MEDS: PANTOPRAZOLE SODIUM 40 MG VIAL IVP SCH ×2 (13:13→19:55)
--- NOTE | 2018-07-26 15:01 | HOSPPROG ---
Hospitalist Progress Note Assessment/Plan: * Acute on chronic blood loss anemia s/p 2 units PRBC -suspect upper GI given history of black stool -not up to date on colonoscopy (h/o colon ca) -EGD/colonoscopy in am -takes ASA/Plavix/Eliquis + Naproxen at home - on hold -IV PPI * Iron deficiency -oral iron * s/p palma * CAD s/p stent OM Jul 2017 -restart Plavix post GI eval. DC ASA * Type 2 Non-STEMI -demand ischemia due to severe anemia + rapid afib * PAF - now back NSR -resume Eliquis once GI work-up complete Subjective: No complaints. Objective: Vital Signs Temp Pulse Resp BP Pulse Ox 36.3 C 73 18 117/104 H 95 07/26/18 14:35 07/26/18 14:35 07/26/18 14:35 07/26/18 14:35 07/26/18 14:35 Laboratory Results 07/26/18 07:15 07/25/18 06:35 07/25/18 07/26/18 07/27/18 05:59 05:59 05:59 Intake Total 2150 Balance 2150 EKG viewed, my personal interpretation is - NSR, no ischemic ST changes tele reviewed - NSR - Physical Exam Constitutional: no apparent distress, appears nourished, not in pain Cardiovascular: regular rate and rhythym, no murmur, rub, or gallop Respiratory: no respiratory distress, no rales or rhonchi, clear to auscultation Gastrointestinal: normoactive bowel sounds, soft, non-tender abdomen, no palpable masses Skin: no rashes or abrasions, no fluctuance, no induration Neurologic: AAOx3, sensation intact bilaterally Psychiatric: interacting appropriately, not anxious, not encephalopathic, thought process linear ICD10 Worksheet Patient Problems: Problems Problem Status Onset Atrial fibrillation Acute Chest pain Acute Elevated troponin Acute
[2018-07-26] MEDS: FERROUS SULFATE 325 MG TAB PO SCH (19:55)
[2018-07-27] MEDS: NS 1,000 ML IV SCH (00:27)
[2018-07-27] MEDS: PANTOPRAZOLE SODIUM 40 MG VIAL IVP SCH (07:40)
--- NOTE | 2018-07-27 07:57 | PDANEPAE ---
ANE History of Present Illness EGD Colonoscopy ANE Past Medical History - Cardiovascular History Hx Hypertension: Yes Hx Arrhythmias: Yes Hx Chest Pain: No Hx Coronary Artery / Peripheral Vascular Disease: Yes Hx CHF / Valvular Disease: No Hx Palpitations: No Cardiovascular History Comment: ATRIAL FIB. NE/STENT 07/2017 - Pulmonary History Hx COPD: No Hx Asthma/Reactive Airway Disease: No Hx Recent Upper Respiratory Infection: No Hx Oxygen in Use at Home: Yes O2 in Use at Home (L/minute): 2 Hx Sleep Apnea: No Sleep Apnea Screening Result - Last Documented: Negative Pulmonary History Comment: WILL USE OXYGEN IF FEELS RUN DOWN - Neurologic History Hx Cerebrovascular Accident: No Hx Seizures: No Hx Dementia: No - Endocrine History Hx Diabetes: No - Renal History Hx Renal Disorders: No - Liver History Hx Hepatic Disorders: No Hepatic History Comment: GALL STONES - Neurological & Psychiatric Hx Hx Neurological and Psychiatric Disorders: No - Cancer History Hx Cancer: Yes Cancer History Comment: COLON. SKIN - Congenital Disorder History Hx Congenital Disorders: No - GI History Hx Gastrointestinal Disorders: Yes Gastrointestinal History Comment: CONSTIPATION. OCCASIONAL HEARTBURN - Other Health History Other Health History: ARTHRITIS PAIN RT FOREARM AND LOWER BACK. ANEMIA. VITAMIN B-12 DEF. INTERMITTENT LOWER EXT SWELLING - Chronic Pain History Chronic Pain: Yes (INTERMITTENT RUQ) - Surgical History Prior Surgeries: COLON RESECTION FOR CA. HYSTERECTOMY. DIAG LAP ANE Review of Systems Review of systems is: negative Review of Systems: - Exercise capacity METS (RN): 4 METS ANE Patient History - Allergies Allergies/Adverse Reactions: No Known Allergies Allergy (Verified 06/27/15 15:40) - Home Medications Home medications: home medication list seen and reviewed Home Medications: Aspirin [Aspirin 81mg (*)] 81 mg PO DAILY 07/26/17 [Last Taken 07/21/18] Compounded Estrogen Cream 1 soni VG HS 07/26/17 [Last Taken 07/25/17] Estradiol 0.5 mg PO DAILY 07/26/17 [Last Taken 07/22/18] Docusate Sodium [Dulcolax Stool Softener] 100 mg PO DAILY PRN 07/18/18 [Last Taken 07/19/18] Naproxen [Naprosyn] 500 mg PO BID PRN 07/18/18 [Last Taken 07/21/18] Sennosides/Docusate Sodium [Docusate Sodium-Sennosides Tab] 1 each PO BID PRN [Last Taken 07/20/18] traMADol [Ultram 50 mg (*)] 50 mg PO Q4 PRN 07/18/18 [Last Taken 07/22/18 09:15] Acetaminophen [Tylenol ES 500 mg (*)] 500 mg PO Q4H PRN 07/22/18 [Last Taken 12/08] Clopidogrel Bisulfate [Plavix (*)] 75 mg PO DAILY 07/22/18 [Last Taken 07/18/18] Cyclobenzaprine [Cyclobenzaprine HCl] 5 mg PO BID PRN 07/22/18 [Last Taken Unknown] Magnesium Hydroxide [Milk of Magnesia] 30 ml PO DAILY PRN 07/22/18 [Last Taken Unknown] - NPO status NPO Status: no food or drink >8 hours NPO Since - Liquids (Date): 07/27/18 NPO Since - Liquids (Time): 00:00 NPO Since - Solids (Date): 07/26/18 NPO Since - Solids (Time): 00:00 - Anes Hx Anes Hx: no prior problems - Smoking Hx Smoking Status: Never smoked - Alcohol Use Alcohol Use: Occasionally - Family Anes Hx Family Anes Hx: none ANE Labs/Vital Signs - Labs Result Diagrams: 07/26/18 07:15 07/25/18 06:35 - Vital Signs Vital Signs: reviewed preoperatively; see RN documention for details Blood Pressure: 137/75 Heart Rate: 95 Respiratory Rate: 16 O2 Sat (%): 95 Height: 163.83 cm Weight: 90.718 kg ANE Physical Exam - Airway Neck exam: decreased ROM Mallampati Score: Class 3 Mouth exam: normal dental/mouth exam - Pulmonary Pulmonary: no respiratory distress - Cardiovascular Cardiovascular: regular rate and rhythym - ASA Status ASA Status: IV ANE Anesthesia Plan Total IV Anesthesia: Yes
[2018-07-27] MEDS ORDERED: PROPOFOL/EMULSION 500 MG/50 ML BOTTLE IV ONE (08:11)
[2018-07-27] MEDS ORDERED: HYDROCODONE/APAP 5/325 TAB PO PRN (08:27)
[2018-07-27] MEDS ORDERED: DEXAMETHASONE 4 MG/ML VIAL IVP PRN (08:27)
[2018-07-27] MEDS ORDERED: oxyCODONE IR 5 MG TAB PO PRN (08:27)
[2018-07-27] MEDS ORDERED: NALOXONE HCL 0.4 MG/ML INJ IVP PRN (08:27)
[2018-07-27] MEDS ORDERED: ONDANSETRON 4 MG/2 ML VIAL IVP PRN (08:27)
[2018-07-27] MEDS ORDERED: MEPERIDINE 25 MG/0.5 ML AMP IVP PRN (08:27)
[2018-07-27] MEDS ORDERED: fentaNYL 100 MCG/2 ML INJ IVP PRN (08:27)
[2018-07-27] MEDS ORDERED: ACETAMINOPHEN 500 MG TAB PO PRN (08:27)
--- NOTE | 2018-07-27 08:27 | POSTANESTH ---
Post Anesthetic Evaluation Cardiovascular Status: Similar to Pre-Op Cond Respiratory Status: Similar to Pre-op Cond. Level of Consciousness/Mental Status: Can Participate in Eval, Moderately Sleepy Pain Control: Adequate, Prn Tx Ordered Nausea/Vomiting Control: Adequate, Prn Tx Ordered Complications Possibly Related to Anesthesia: None Noted
--- NOTE | 2018-07-27 08:56 | GIREPORT ---
[facility] - Endoscopy Department Patient Name: Adrienne Bello Procedure Date: 07/27/2018 7:33 AM Patient Type: Inpatient Attending MD/ ER Physician: Alfa Cesar MD Procedure: Upper GI endoscopy Indications: Iron deficiency anemia, Melena Providers: Alfa Ceasr MD Medicines: Propofol per Anesthesia Complications: No immediate complications. Description of Procedure: After obtaining informed consent, the endoscope was passed under direct vision. Throughout the procedure, the patient's blood pressure, pulse, and oxygen saturations were monitored continuously. The Endoscope was intro duced through the mouth, and advanced to the second part of duodenum. The [facility] er GI endoscopy was accomplished without difficulty. The patient tolerated th e procedure well. Findings: The examined esophagus was normal. A single 5 mm sessile polyp with no stigmata of recent bleeding was fou nd in the gastric fundus. The polyp was removed with a cold biopsy forceps. Resection and retrieval were complete. The cardia, gastric body and gastric antrum were normal. Biopsies were taken with a cold forceps for histology. One non-bleeding cratered duodenal ulcer with no stigmata of bleeding w as found in the duodenal bulb. The lesion was 15 mm in largest dimension. The second portion of the duodenum was normal. Estimated Blood Loss: Estimated blood loss: none. Post Op Diagnosis: - Normal esophagus. - A single gastric polyp. Resected and retrieved. - Normal cardia, gastric body and antrum. Biopsied. - One non-bleeding duodenal ulcer with no stigmata of bleeding. - Normal second portion of the duodenum. Recommendation: - Perform a colonoscopy today. - Use Protonix (pantoprazole) 40 mg PO BID for 2 months. - Await pathology results. Attending Participation: I personally performed the entire procedure. Alfa Cesar MD Alfa Cesar MD 07/27/2018 8:56:39 AM This report has been signed electronicallyAlfa Cesar MD Number of Addenda: 0 Note Initiated On: 07/27/2018 7:33 AM [email or web address]
--- NOTE | 2018-07-27 09:00 | GIREPORT ---
[facility] - Endoscopy Department Patient Name: Adrienne Bello Procedure Date: 07/27/2018 7:33 AM Patient Type: Inpatient Attending MD/ ER Physician: Alfa Cesar MD Procedure: Colonoscopy Indications: Melena, Personal history of malignant neoplasm of the colon Providers: Alfa Cesar MD Medicines: Propofol per Anesthesia Complications: No immediate complications. Description of Procedure: After obtaining informed consent, the scope was passed under direct vis ion. Throughout the procedure, the patient's blood pressure, pulse, and oxyg en saturations were monitored continuously. The Colonoscope was introduced through the anus and advanced to the ileocolonic anastomosis. The colonoscopy was performed without difficulty. The patient tolerated the procedure well. The quality of the bowel preparation was good. Findings: There was evidence of a prior end-to-side ileo-colonic anastomosis in t he mid transverse colon. This was patent and was characterized by healthy appearing mucosa. The rectum, sigmoid colon, descending colon and distal transverse colon appeared normal. The perianal and digital rectal examinations were normal. Estimated Blood Loss: Estimated blood loss: none. Post Op Diagnosis: - Patent end-to-side ileo-colonic anastomosis, characterized by healthy appearing mucosa. - The rectum, sigmoid colon, descending colon and distal transverse col on are normal. - No specimens collected. Recommendation: - Return patient to hospital [facility] for ongoing care. - Resume regular diet today. - Await pathology results. - Repeat colonoscopy in 5 years for surveillance. Attending Participation: I personally performed the entire procedure. Alfa Cesar MD Alfa Cesar MD 07/27/2018 8:59:44 AM This report has been signed electronicallyAlfa Cesar MD Number of Addenda: 0 Note Initiated On: 07/27/2018 7:33 AM Total Procedure Duration Time 0 hours 22 minutes 49 seconds [email or web address]
--- NOTE | 2018-07-27 09:28 | SOAPPROG ---
SOAP Progress Note Assessment/Plan: Assessment: 1. Coronary artery disease. She is 1 year out from PCI/stenting of an obtuse marginal branch in the setting of clinical presentation with atrial fibrillation /RVR and a type [address] elevation myocardial infarction. 2. Paroxysmal atrial fibrillation. As noted above, she suffered a type [address] elevation myocardial infarction a year ago that led to discovery of her mild CAD. She had a recurrent event earlier this hospitalization which was self- limited. Her chads Vasc score is 4 consistent with a significantly elevated risk for stroke. As such, as an outpatient, she was appropriately systemically anticoagulated. 3. Type [address] elevation myocardial infarction. During this hospitalization in the setting of profound anemia and recurrent a-fib/RVR she suffered a recurrent small non ST elevation NJ. This is likely on the basis of supply demand mismatch in the setting of profound anemia and tachycardia. Currently, there is no indication of ongoing ischemia. 4. Hypertension. 5. Hyperlipidemia. 6. Iron deficiency anemia. This was noted on admission for elective cholecystectomy. She does have a history of anti-platelet therapy and systemic anticoagulation use in the setting of nonsteroidal use. Currently she appears to be stable following transfusion and cessation of anti-platelet and anticoagulation therapies. There are plans for further GI workup. 7. Status post cholecystectomy. Plan: 1. Because of her duodenal ulcer associated with continued oozing recommendations are to continue to hold systemic anticoagulation and anti- platelet therapy for the near term. 2. She is going to be started on high dose proton pump inhibitor therapy by Gastroenterology hopefully to help heal the existing duodenal ulcer. 3. At some point in the next 1-2 months she will have a repeat EGD. Once it is documented that her duodenal ulcer is healed systemic anticoagulation and anti- platelet therapy can resume. 4. We will plan to continue secondary prevention medications and form of antihypertensive therapy and lipid lowering therapy. 5. We will follow along with you. 07/27/18 09:26 Subjective: She has remained stable overnight. I did discuss the findings of her EGD with Dr. Cesar. Apparently, she has a large duodenal ulcer with some residual oozing. There was no obvious active bleeding. Objective: Vital Signs Temp Pulse Resp BP Pulse Ox 36.1 C 95 16 137/75 H 95 07/27/18 08:53 07/27/18 08:13 07/27/18 08:13 07/27/18 08:13 07/27/18 08:13 Laboratory Results 07/26/18 07:15 07/25/18 06:35 07/26/18 07/27/18 07/28/18 05:59 05:59 05:59 Intake Total 800 70 Balance 800 70 Physical Exam - Physical Exam General Appearance: other (The patient was not examined today. She was down having her procedure at the time of my visit.) ICD10 Worksheet Patient Problems: Problems Problem Status Onset Atrial fibrillation Acute Chest pain Acute Elevated troponin Acute
[2018-07-27] MEDS: METOPROLOL TARTRATE 50 MG TAB PO SCH ×2 (09:54→20:15)
[2018-07-27] MEDS: ATORVASTATIN CALCIUM 40 MG TAB PO SCH (09:54)
[2018-07-27] MEDS: FERROUS SULFATE 325 MG TAB PO SCH ×2 (09:54→20:15)
[2018-07-27] MEDS: ESTRADIOL 0.5 MG TAB PO SCH (09:56)
[2018-07-27] MEDS: SIMETHICONE DROPS 30 ML BOTTLE PO PRN ×3 (11:45→20:17)
[2018-07-27] MEDS: ACETAMINOPHEN 325 MG TAB PO PRN ×2 (12:03→16:17)
[2018-07-27] MEDS: MAGNESIUM HYDROXIDE 30 ML UDCUP PO PRN (13:20)
[2018-07-27] MEDS ORDERED: HYDROmorphONE/DILAUDID 1 MG/ML INJ IVP PRN (14:46)
--- NOTE | 2018-07-27 16:02 | HOSPPROG ---
Hospitalist Progress Note Assessment/Plan: * Acute on chronic blood loss anemia s/p 2 units PRBC * Duodenal ulcer - currently non bleeding -await pathology -continue PPI -DC ASA and Naprosyn * h/o colon cancer -colonoscopy negative * Iron deficiency -oral iron * s/p palma * CAD s/p stent OM Jul 2017 -restart Plavix when okay with GI * Type 2 Non-STEMI -demand ischemia due to severe anemia + rapid afib * PAF - now back NSR -resume Eliquis when okay with GI * Obesity -BMI 34 Subjective: Feels lots of abd pain post colonoscopy from gas Objective: Vital Signs Temp Pulse Resp BP Pulse Ox 36.5 C 77 22 H 149/76 H 94 07/27/18 15:47 07/27/18 15:47 07/27/18 15:47 07/27/18 15:47 07/27/18 15:47 Laboratory Results 07/26/18 07:15 07/25/18 06:35 07/26/18 07/27/18 07/28/18 05:59 05:59 05:59 Intake Total 800 120 Balance 800 120 - Time Spent With Patient Time Spent with Patient: greater than 35 minutes (extensive questions from patient with prolonged visit) Time Spent with Patient: Greater than 35 minutes spent on this patients care, greater than 50% of time spent counseling, educating, and coordinating care regarding the above mentioned plan. - Physical Exam Constitutional: no apparent distress, appears nourished, not in pain Cardiovascular: regular rate and rhythym, no murmur, rub, or gallop Respiratory: no respiratory distress, no rales or rhonchi, clear to auscultation Gastrointestinal: normoactive bowel sounds, soft, non-tender abdomen, no palpable masses Skin: no rashes or abrasions, no fluctuance, no induration Neurologic: AAOx3, sensation intact bilaterally Psychiatric: interacting appropriately, not encephalopathic, thought process linear, anxious ICD10 Worksheet Patient Problems: Problems Problem Status Onset Atrial fibrillation Acute Chest pain Acute Elevated troponin Acute
[2018-07-27] MEDS: PANTOPRAZOLE SODIUM 40 MG TAB PO SCH (20:15)
[2018-07-27] MEDS: oxyCODONE IR 5 MG TAB PO PRN (22:37)
[2018-07-28 04:40] LABS: PLATELET COUNT 444 10^3/uL (150-400)
--- NOTE | 2018-07-28 09:12 | SOAPPROG ---
SOAP Progress Note Assessment/Plan: Assessment: EGD reviewed, ulcer not actively bleeding. Awaiting H pylori and Bx. Await restarting plavix and Eliquis per GI her abdomen is otherwise soft, she is tolerating diet dispo planning. Once GI and IM happy, will plan dc back to [facility]. Cont to hold ASA and NSAIDs indefinitely Plan: 07/23/18 10:20 07/24/18 12:49 07/26/18 09:55 07/28/18 09:10 Subjective: feels well Objective: Vital Signs Temp Pulse Resp BP Pulse Ox 36.6 C 79 16 123/60 H 92 07/28/18 03:56 07/28/18 03:56 07/28/18 03:56 07/28/18 03:56 07/28/18 03:56 Laboratory Results 07/28/18 03:54 07/25/18 06:35 07/27/18 07/28/18 07/29/18 05:59 05:59 05:59 Intake Total 800 1580 Balance 800 1580 ICD10 Worksheet Patient Problems: Problems Problem Status Onset Atrial fibrillation Acute Chest pain Acute Elevated troponin Acute
--- NOTE | 2018-07-28 10:31 | PDCARPN ---
Cardiology Progress Note Assessment/Plan: Assessment: 1. CAD with hx of PCI to OM last year 2. PAF: CHADS VASC 4. 3. NSTEMI this admission secondary to demand/supply mismatch in setting of AFib with RVR and marked anemia secondary to GI bleed 4. HTN 5. Hyperlipidemia 6. Duodenal ulcer with significant GI bleed with Hgb down to 7 s/p transufusion 8.4 today Plan: -Hold Eliquis and Aspirin -discussed with patient to remain off of NSAIDS -Follow up with Dr. Desai on Aug 07, 2018 07/28/18 10:28 Subjective: Mrs. Bello remains in NSR this AM. No events on telemetry. No cardiac complaints. Objective: Vital Signs (8 Hrs) Temp Pulse Resp BP Pulse Ox 07/28/18 03:56 36.6 C 79 16 123/60 H 92 Intake/Output (24 Hrs) 07/27/18 07/28/18 07/29/18 05:59 05:59 05:59 Intake Total 800 1580 Balance 800 1580 Intake: Oral (ml) 800 1510 IV Intake (ml) 70 Other: Weight 90.718 kg Intake Quantity Yes Yes Sufficient Output Comment Toilet per pt report jet black, loose stools, liquid like Number of Voids Toilet 10 1 Number of Stools Toilet 10 1 Result Diagrams: 07/28/18 03:54 07/25/18 06:35 - Physical Exam Constitutional: no apparent distress Ears, Nose, Mouth, Throat: moist mucous membranes Cardiovascular: regular rate and rhythm, no rubs, no gallops Respiratory: clear to auscultate bilat Musculoskeletal: no muscular tenderness Neurologic: AAOx3 Psychiatric: cooperative, interactive, following commands ICD10 Worksheet Patient Problems: Problems Problem Status Onset Atrial fibrillation Acute Chest pain Acute Elevated troponin Acute
--- NOTE | 2018-07-28 11:18 | SOAPPROG ---
SOAP Progress Note Assessment/Plan: Assessment: 1. Large DU found on EGD yesterday; cause of AKHIL. H. pylori stain pending. 2. Post hemorrhagic anemia; stable. 3. Phx of colon cancer with normal colonoscopy yesterday. Plan: 1. QUINTIN. 2. Protonix 40 mg PO BID x 2 months. 3. No NSAID's or anticoagulants x 2 months 3. Repeat outpatient EGD in two months; can restart anticoagulants if DU healed at that point. Alfa Cesar MD 07/28/18 11:14 Subjective: CC: DU with bleed. Interval HPI: Scant black stool yesterday. C/O mild vague diffuse abdominal discomfort today. Tolerating regular diet. Objective: Vital Signs Temp Pulse Resp BP Pulse Ox 36.6 C 79 16 123/60 H 92 07/28/18 03:56 07/28/18 03:56 07/28/18 03:56 07/28/18 03:56 07/28/18 03:56 Laboratory Results 07/28/18 03:54 07/25/18 06:35 07/27/18 07/28/18 07/29/18 05:59 05:59 05:59 Intake Total 800 1580 Balance 800 1580 Physical Exam - Physical Exam General Appearance: WD/WN, alert, no apparent distress Respiratory: lungs clear, normal breath sounds Cardiac/Chest: regular rate, rhythm Abdomen: normal bowel sounds, non-tender, soft Skin: normal color, warm/dry Neuro/Psych: alert, normal mood/affect, oriented x 3 ICD10 Worksheet Patient Problems: Problems Problem Status Onset Atrial fibrillation Acute Chest pain Acute Elevated troponin Acute
[2018-07-28] MEDS: FERROUS SULFATE 325 MG TAB PO SCH ×2 (11:54→21:32)
[2018-07-28] MEDS: METOPROLOL TARTRATE 50 MG TAB PO SCH ×2 (11:54→21:32)
[2018-07-28] MEDS: ATORVASTATIN CALCIUM 40 MG TAB PO SCH (11:55)
[2018-07-28] MEDS: PANTOPRAZOLE SODIUM 40 MG TAB PO SCH ×2 (11:55→21:32)
[2018-07-28] MEDS: ESTRADIOL 0.5 MG TAB PO SCH (11:55)
[2018-07-28] MEDS: ACETAMINOPHEN 325 MG TAB PO PRN ×2 (12:01→21:35)
[2018-07-28] MEDS: MAGNESIUM HYDROXIDE 30 ML UDCUP PO PRN ×2 (12:01→21:38)
[2018-07-28] MEDS: SIMETHICONE DROPS 30 ML BOTTLE PO PRN (14:43)
--- NOTE | 2018-07-28 15:10 | ASMTCMCOM ---
CM Note CM Note Notes: Spoke with pt briefly in the room. Pt did not want to engage in a full discussion at that time. Pt stated she had a friend who could provide D/C transportation home. PT recommending home independently. Pt currently independent in the room. Pt likely to discharge pt home independently. No CM needs noted at this time. CM to follow should needs change. . Date Signed: 07/28/2018 03:09 PM Electronically Signed By:Aidee Aggarwal
--- NOTE | 2018-07-28 15:46 | HOSPPROG ---
Hospitalist Progress Note Assessment/Plan: * Acute on chronic blood loss anemia s/p 2 units PRBC * Duodenal ulcer -await pathology -continue PPI BID for 2 months -DC anticoagulants and Naprosyn for 2 months -repeat EGD 2 months * h/o colon cancer -colonoscopy negative * Iron deficiency -oral iron * s/p palma * CAD s/p stent OM Jul 2017 -restart Plavix when okay with GI * Type 2 Non-STEMI -demand ischemia due to severe anemia + rapid afib * PAF - now back NSR -resume Eliquis when okay with GI * Obesity -BMI 34 Subjective: Still lots of gas pain from colonoscopy. Barely eating. Feels very weak and not ready for discharge home. Objective: Vital Signs Temp Pulse Resp BP Pulse Ox 37.5 C 91 15 153/93 H 94 07/28/18 15:21 07/28/18 15:21 07/28/18 15:21 07/28/18 15:21 07/28/18 15:21 Laboratory Results 07/28/18 03:54 07/25/18 06:35 07/27/18 07/28/18 07/29/18 05:59 05:59 05:59 Intake Total 800 1580 Balance 800 1580 - Physical Exam Constitutional: no apparent distress, appears nourished, not in pain Cardiovascular: regular rate and rhythym, no murmur, rub, or gallop Respiratory: no respiratory distress, no rales or rhonchi, clear to auscultation Gastrointestinal: normoactive bowel sounds, soft, non-tender abdomen, no palpable masses Skin: no rashes or abrasions, no fluctuance, no induration Neurologic: AAOx3, sensation intact bilaterally Psychiatric: interacting appropriately, not anxious, not encephalopathic, thought process linear ICD10 Worksheet Patient Problems: Problems Problem Status Onset Atrial fibrillation Acute Chest pain Acute Elevated troponin Acute
[2018-07-29] MEDS: SIMETHICONE DROPS 30 ML BOTTLE PO PRN (00:29)
[2018-07-29] MEDS: ATORVASTATIN CALCIUM 40 MG TAB PO SCH (10:33)
[2018-07-29] MEDS: PANTOPRAZOLE SODIUM 40 MG TAB PO SCH ×2 (10:33→20:25)
[2018-07-29] MEDS: ESTRADIOL 0.5 MG TAB PO SCH (10:33)
[2018-07-29] MEDS: FERROUS SULFATE 325 MG TAB PO SCH ×2 (10:34→20:26)
[2018-07-29] MEDS: METOPROLOL TARTRATE 50 MG TAB PO SCH ×2 (10:34→20:26)
--- NOTE | 2018-07-29 11:39 | SOAPPROG ---
NICOLE Progress Note Assessment/Plan: Assessment: Doing well, continues to have a myriad of complaints but appears to be improving. She wants to stay until tomorrow. Agree that all medical issues have been stabilized and that she is safe for discharge. Plan: 07/23/18 10:20 07/24/18 12:49 07/26/18 09:55 07/28/18 09:10 07/29/18 11:39 Subjective: pt doesnt want to leave today, or any day Objective: Vital Signs Temp Pulse Resp BP Pulse Ox 36.6 C 70 18 147/74 H 94 07/29/18 08:00 07/29/18 10:34 07/29/18 08:00 07/29/18 10:34 07/29/18 08:00 Laboratory Results 07/28/18 03:54 07/25/18 06:35 07/28/18 07/29/18 07/30/18 05:59 05:59 05:59 Intake Total 1580 425 Output Total 650 Balance 1580 -225 ICD10 Worksheet Patient Problems: Problems Problem Status Onset Atrial fibrillation Acute Chest pain Acute Elevated troponin Acute
--- NOTE | 2018-07-29 14:53 | PDCARPN ---
Cardiology Progress Note Assessment/Plan: Assessment: 1. CAD with hx of PCI to OM last year 2. PAF: CHADS VASC 4. 3. NSTEMI this admission secondary to demand/supply mismatch in setting of AFib with RVR and marked anemia secondary to GI bleed 4. HTN 5. Hyperlipidemia 6. Duodenal ulcer with significant GI bleed with Hgb down to 7 s/p transufusion 8.4 today Plan: -Hold Eliquis and Aspirin -discussed with patient to remain off of NSAIDS -Follow up with Dr. Desai on Aug 07, 2018 07/28/18 10:28 Subjective: Adrienne is doing well today. Hemodynamically stable. Paroxysms of Afib noted on telemetry, can can appreciate rapid irregular rhythm. No dizziness or syncope. No sob. No complaints of chest pain or pressure. Hgb is low but stable at 8.3 ( 8.2 yesterday). Reviewed/Discussed With: multidisciplinary team Objective: Vital Signs (8 Hrs) Temp Pulse Resp BP Pulse Ox 07/29/18 12:00 36.7 C 70 18 153/87 H 96 07/29/18 10:34 70 147/74 H 07/29/18 08:00 36.6 C 70 18 147/74 H 94 Intake/Output (24 Hrs) 07/28/18 07/29/18 07/30/18 05:59 05:59 05:59 Intake Total 1580 425 Output Total 650 Balance 1580 -225 Intake: Oral (ml) 1510 425 IV Intake (ml) 70 0 Output: Urine (ml) 650 Toilet 650 Other: Weight 90.718 kg Intake Quantity Yes Yes Sufficient Output Comment Toilet jet black, loose stools, liquid like Number of Voids Toilet 1 3 Number of Stools Toilet 1 3 1 Result Diagrams: 07/28/18 03:54 07/25/18 06:35 - Physical Exam Constitutional: WDWN Ears, Nose, Mouth, Throat: moist mucous membranes Cardiovascular: regular rate and rhythm, no murmurs, no rubs, no gallops Respiratory: clear to auscultate bilat Musculoskeletal: no muscular tenderness Neurologic: AAOx3, CN II-XII grossly intact Psychiatric: cooperative, interactive ICD10 Worksheet Patient Problems: Problems Problem Status Onset Atrial fibrillation Acute Chest pain Acute Elevated troponin Acute
[2018-07-29] MEDS: ONDANSETRON DISINTEGRATING 4 MG TAB PO PRN (15:14)
--- NOTE | 2018-07-29 16:31 | HOSPPROG ---
Hospitalist Progress Note Assessment/Plan: * Acute on chronic blood loss anemia s/p 2 units PRBC -patient with persistent black stools, 6 BM in last 24 hours -heme check stools, consider GI PCR panel if diarrhea persists -recheck H/H in am * Duodenal ulcer -await pathology -continue PPI BID for 2 months -DC anticoagulants and Naprosyn for 2 months -repeat EGD 2 months * h/o colon cancer -colonoscopy negative -having ongoing extreme abd pain and nausea due to gas insufflation post colonoscopy * Iron deficiency -oral iron * s/p palma * CAD s/p stent OM Jul 2017 -restart Plavix when okay with GI * Type 2 Non-STEMI -demand ischemia due to severe anemia + rapid afib * PAF - now back NSR -resume Eliquis when okay with GI * Obesity -BMI 34 Subjective: Feels terrible, not ready for home today. Still with abd pain and new nausea this am, not eating. Black stools, > 6 BM in last 24 hours Objective: Vital Signs Temp Pulse Resp BP Pulse Ox 36.7 C 70 18 153/87 H 96 07/29/18 12:00 07/29/18 12:00 07/29/18 12:00 07/29/18 12:00 07/29/18 12:00 Laboratory Results 07/28/18 03:54 07/25/18 06:35 07/28/18 07/29/18 07/30/18 05:59 05:59 05:59 Intake Total 1580 425 Output Total 650 Balance 1580 -225 d/w Dr. Fry regarding discharge plan tele reviewed - NSR - Physical Exam Constitutional: no apparent distress, appears nourished, not in pain Cardiovascular: regular rate and rhythym, no murmur, rub, or gallop Respiratory: no respiratory distress, no rales or rhonchi, clear to auscultation Gastrointestinal: normoactive bowel sounds, soft, non-tender abdomen, no palpable masses Skin: no rashes or abrasions, no fluctuance, no induration Neurologic: AAOx3, sensation intact bilaterally Psychiatric: interacting appropriately, not anxious, not encephalopathic, thought process linear ICD10 Worksheet Patient Problems: Problems Problem Status Onset Atrial fibrillation Acute Chest pain Acute Elevated troponin Acute
--- NOTE | 2018-07-29 17:08 | ASMTCMCOM ---
CM Note CM Note Notes: Spoke with pt in the room and with RN and hospitalist. Pt to discharge tomorrow. Thereapies not ordered on pt as pt has been independent in the room. Per hospitalist, pt has had post colonoscopy pain and 6 bouts on diarrhea today with nausea and will not be discharging until tomorrow. Pt is requesting home RN visits and stated that [employer] would cover it without an order from the MD. Pt to call [employer] and arrange. If hospitalist chooses to order home RN, CM is happy to arrange, but at this point, neccessity is unclear. D/C Plan: Home independently or with HC RN. Date Signed: 07/29/2018 05:07 PM Electronically Signed By:Aidee Aggarwal
[2018-07-29] MEDS: ACETAMINOPHEN 325 MG TAB PO PRN (20:28)
[2018-07-30 04:11] LABS: PLATELET COUNT 481 10^3/uL (150-400)
--- NOTE | 2018-07-30 08:27 | HOSPPROG ---
Hospitalist Progress Note Assessment/Plan: * Acute on chronic blood loss anemia s/p 2 units PRBC -patient with persistent black stools, 6 BM in last 24 hours -heme check stools, consider GI PCR panel if diarrhea persists -recheck H/H in am * Duodenal ulcer -await pathology -continue PPI BID for 2 months -holding eliquis, no nsaids for 2 months -repeat EGD 2 months * h/o colon cancer -colonoscopy negative -having ongoing extreme abd pain and nausea due to gas insufflation post colonoscopy * Iron deficiency -oral iron * s/p lap palma * CAD s/p stent OM Jul 2017 -restart Plavix when okay with GI -has outpt f/u with Dr. Desai 08/07 * Type 2 Non-STEMI -demand ischemia due to severe anemia + rapid afib -outpt stress test per cards * PAF - now back NSR -resume Eliquis when okay with GI * Obesity -BMI 34 * DVT PPLX - no lovenox with GIB, SCD's * Dispo - cont inpt Objective: Vital Signs Temp Pulse Resp BP Pulse Ox 36.8 C 72 16 139/70 H 96 07/30/18 03:51 07/30/18 03:51 07/30/18 03:51 07/30/18 03:51 07/30/18 03:51 Laboratory Results 07/30/18 03:20 07/25/18 06:35 07/29/18 07/30/18 07/31/18 05:59 05:59 05:59 Intake Total 425 1720 Output Total 650 Balance -225 1720 ICD10 Worksheet Patient Problems: Problems Problem Status Onset Atrial fibrillation Acute Chest pain Acute Elevated troponin Acute
[2018-07-30] MEDS: ATORVASTATIN CALCIUM 40 MG TAB PO SCH (09:52)
[2018-07-30] MEDS: METOPROLOL TARTRATE 50 MG TAB PO SCH (09:53)
[2018-07-30] MEDS: FERROUS SULFATE 325 MG TAB PO SCH (09:56)
[2018-07-30] MEDS: PANTOPRAZOLE SODIUM 40 MG TAB PO SCH (09:56)
[2018-07-30 09:59] VITALS: BP 150/91
[2018-07-30] MEDS: ESTRADIOL 0.5 MG TAB PO SCH (09:59)
--- NOTE | 2018-07-30 12:47 | ASMTLACE ---
SLIMEE Length of stay for Answers: 4-6 days current admission Acuity / Level of Answers: Yes Care: Did the patient have an inpatient admission? Comorbidities - select Answers: Coronary Artery Disease all that apply Opioid dependence / Chronic pain Previous myocardial infarction Other Notes: HTN # of Emergency department Answers: 0 visits in the last 6 months Social determinants Answers: Mental health diagnosis (anxiety, depression, pers onality disorders, etc.) Score: 18 Date Signed: 07/30/2018 12:46 PM Electronically Signed By:Rochelle Martinez RN
--- NOTE | 2018-07-30 12:50 | ASMTDCNOTE ---
Case Management Discharge Discharge Order Complete? Answers: Yes Patient to Obtain Answers: Independently Medications Transportation Arranged Answers: Family/Friends Discharge Comments Notes: 07/30/2018 Case Management Note Pt lives at [facility]. Pt to follow up as directed. Pt does not qualify for home care at this time. Encouraged pt to follow up with PCP and lawn mower mechanic with questions. Pt friend to transport home. No further needs from case management. Date Signed: 07/30/2018 12:48 PM Electronically Signed By:Rochelle Martinez RN
--- NOTE | 2018-07-30 12:52 | ASDISCHSUM ---
Discharge Information Plan Status:Home with No Needs Medically Cleared to Leave:07/30/2018 Discharge Date:07/30/2018 CM D/C Disposition:Home, Routine, Self-Care ADT D/C Disposition:[id number] Projected Discharge Date:07/30/2018 Transportation at D/C:Friend Discharge Delay Reason: Follow-Up Date:07/30/2018 Discharge Slot: Final Diagnosis: Placement Information Patient Contact Information Contact Name:CHEKO Relationship:Richard Address: Work Phone: City: [facility] Phone: State/Zip Code: Email: Financial Information Financial Class:Medicare Advantage Plans Primary Plan Desc:[employer] MED[employer]ARE ADV Primary Plan Number:[id number] Secondary Plan Desc: Secondary Plan Number: Assessment Information LACE LACE Length of stay for Answers: 4-6 days current admission Acuity / Level of Answers: Yes Care: Did the patient have an inpatient admission? Comorbidities - select Answers: Coronary Artery Disease all that apply Opioid dependence / Chronic pain Previous myocardial infarction Other Notes: HTN # of Emergency department Answers: 0 visits in the last 6 months Social determinants Answers: Mental health diagnosis (anxiety, depression, pers onality disorders, etc.) Score: 18 Date Signed: 07/30/2018 12:46 PM Electronically Signed By:Rochelle Martinez RN [facility] CM Progress Note CM Note CM Note Notes: Pt admitted for surgery on gallstones, she lives alone at . CM spoke w/RN, anticipate pt will dc home when medically stable. CM available for any changes. DC Plan: Independent Date Signed: 07/23/2018 02:38 PM Electronically Signed By:Louann Metzger RN [facility] CM Progress Note CM Note CM Note Notes: Patient required a blood transfusion 2 units, due to acute blood loss anemia. She also has chest pain with troponin elevation. OT/PT ordered today. D/C plan TBD at this time. CM will follow. Date Signed: 07/25/2018 09:55 AM Electronically Signed By:Cristina Harris LCSW [facility] CM Progress Note CM Note CM Note Notes: Spoke with pt briefly in the room. Pt did not want to engage in a full discussion at that time. Pt stated she had a friend who could provide D/C transportation home. PT recommending home independently. Pt currently independent in the room. Pt likely to discharge pt home independently. No CM needs noted at this time. CM to follow should needs change. . Date Signed: 07/28/2018 03:09 PM Electronically Signed By:Aidee Aggarwal [facility] CM Progress Note CM Note CM Note Notes: Spoke with pt in the room and with RN and hospitalist. Pt to discharge tomorrow. Thereapies not ordered on pt as pt has been independent in the room. Per hospitalist, pt has had post colonoscopy pain and 6 bouts on diarrhea today with nausea and will not be discharging until tomorrow. Pt is requesting home RN visits and stated that [employer] would cover it without an order from the MD. Pt to call [employer] and arrange. If hospitalist chooses to order home RN, CM is happy to arrange, but at this point, neccessity is unclear. D/C Plan: Home independently or with HC RN. Date Signed: 07/29/2018 05:07 PM Electronically Signed By:Aidee Aggarwal Case Management Discharge Plan Note Case Management Discharge Discharge Order Complete? Answers: Yes Patient to Obtain Answers: Independently Medications Transportation Arranged Answers: Family/Friends Discharge Comments Notes: 07/30/2018 Case Management Note Pt lives at [facility]. Pt to follow up as directed. Pt does not qualify for home care at this time. Encouraged pt to follow up with PCP and director of nurses registry with questions. Pt friend to transport home. No further needs from case management. Date Signed: 07/30/2018 12:48 PM Electronically Signed By:Rochelle Martinez RN Intervention Information Intervention Type:*IM-Signed Date of Service:07/30/2018 10:15 AM Patient Type:Inpatient Staff Member:Lauri Lees Hours: Discipline: Severity: Comment:
--- NOTE | 2018-07-31 05:22 | GDS ---
DISCHARGE DIAGNOSES: 1. Status post laparoscopic cholecystectomy. 2. Type [address] elevation myocardial infarction secondary to demand ischemia in the setting of phuc re anemia and rapid atrial fibrillation. 3. Paroxysmal atrial fibrillation in the postoperative setting. 4. Upper gastrointestinal bleed secondary to duodenal ulcer. 5. Acute on chronic blood loss anemia, status post 2 units of packed red blood cells. 6. Iron deficiency. 7. History of colon cancer. 8. Coronary artery disease, status post stent in July 2017. 9. Obesity. CONSULTANTS: 1. Dr. Nael Ireland, General Surgery. 2. Dr. Bakari Smallwood, Gastroenterology. 3. Dr. Zaki Lloyd, Cardiology. PROCEDURES: 1. Laparoscopic cholecystectomy July 22, 2018, performed by Dr. Nael Ireland. 2. Upper endoscopy July 27, 2018, showed a nonbleeding duodenal ulcer. 3. Colonoscopy July 27, 2018, showed a patent end-to-end ileocolonic anastomosis with a normal-soni earing rectum, sigmoid colon, descending colon, and distal transverse colon. HISTORY: For details please see history and physical on July 22, 2018, by Dr. Nael Ireland. In brief, the patient is a 73-year-old female with a history of coronary artery disease and paroxysmal atrial fibrillation, on chronic anticoagulation, as well as hypertension, hyperlipidemia, who was adm itted to the hospital by General Surgery for a laparoscopic cholecystectomy in the setting of biliary dyskinesia. Her postop course was complicated by rapid atrial fibrillation with an elevated troponi n. Medicine consultation was obtained. HOSPITAL COURSE: During her postoperative phase, she developed rapid atrial fibrillation. Her tropo caleb was elevated. This was thought to be secondary to demand ischemia. In addition, she had a low h emoglobin prior to surgery of 7. Her hemoglobin postoperatively was 5.2. This was thought to be sec ondary to acute blood loss anemia during surgery in the setting of anti-platelet and anticoagulation use. She then developed melenic stools. She received 2 units of packed red blood cells, and did rem ain hemodynamically stable. GI consult was obtained. She underwent upper endoscopy, which revealed a duodenal ulcer. She was started on b.i.d. PPI therapy. Her type 2 NSTEMI was thought secondary to demand ischemia in setting of the above-described issues. It is noted that she did undergo a vega ry stent approximately 1 year ago. Her anti-platelet therapy was held in the setting of GI bleed. I n addition, her Eliquis was also held. Her hemoglobin remained stable for several days prior to disc harge. She did have some diarrheal stools the day prior to discharge, though this occurred after the use of milk of magnesia. Followup hemoccult stool was negative. She had no further diarrhea the ght before or morning of discharge. There has been no evidence of ongoing active bleeding. Her cond ition is stabilized, and she wishes to discharge home. As described above, her anti-platelet therapy , including aspirin, Plavix, as well as Eliquis are all held at the time of discharge. The patient i s to follow up with Gastroenterology and Cardiology to determine when these will be reinitiated. DISPOSITION: The patient is discharged home in stable condition. FOLLOWUP: 1. Dr. Nael Ireland, General Surgery in [address] Alfa Cesar, Gastroenterology. 3. Dr. Salvador Desai, Cardiology, August 07, 2018. DISCHARGE MEDICATIONS: Please see [employer] completed outpatient medication list. Medications on dis charge include: Oxycodone IR 5-10 mg p.o. q.6 hours p.r.n. #15 no refills, iron sulfate 325 mg p.o. b.i.d. #60 no refills, Protonix 40 mg p.o. twice daily #60 no refills, Zofran 4 mg p.o. q.6 hours p.r .n. #20 no refills. She will continue estradiol 0.5 mg p.o. daily, atorvastatin 40 mg p.o. daily, metoprolol 50 mg p.o. b .i.d., tramadol 50 mg p.o. q.4 hours p.r.n., Flexeril 5 mg p.o. b.i.d. p.r.n., Tylenol 500 mg p.o. q. 4 hours p.r.n. Discontinued medications include: Aspirin, Eliquis, Senokot, docusate, naproxen, Plavix, and milk of magnesia. /[id number]/MODL
== END 2018-07-30 15:05 | disposition home health service (06) | DRG 987 ==
LOC: F3E 08:51 → F2N 07-24 14:52 → OBSVTOIN 07-24 15:26 → F2W 07-26 14:15
PROVIDERS: ADMIT Surgery; ATTEND Surgery
PROC: 0FT44ZZ Resection of Gallbladder, Percutaneous Endoscopic Approach (ICD-10-PCS; principal; 2018-07-22 10:45)
PROC: 30233N1 Transfusion of Nonautologous Red Blood Cells into Peripheral Vein, Percutaneous Approach (ICD-10-PCS; 2018-07-24)
PROC: 0DB68ZX Excision of Stomach, Via Natural or Artificial Opening Endoscopic, Diagnostic (ICD-10-PCS; 2018-07-27 08:00)
PROC: 0DJD8ZZ Inspection of Lower Intestinal Tract, Via Natural or Artificial Opening Endoscopic (ICD-10-PCS; 2018-07-27 08:00)
DX: D62 Acute posthemorrhagic anemia (principal); I21.4 Non-ST elevation (NSTEMI) myocardial infarction; K26.4 Chronic or unspecified duodenal ulcer with hemorrhage; E87.1 Hypo-osmolality and hyponatremia; I48.0 Paroxysmal atrial fibrillation; K80.20 Calculus of gallbladder without cholecystitis without obstruction; I25.10 Atherosclerotic heart disease of native coronary artery without angina pectoris; I10 Essential (primary) hypertension; E78.5 Hyperlipidemia, unspecified; K21.9 Gastro-esophageal reflux disease without esophagitis; E66.9 Obesity, unspecified; Z85.038 Personal history of other malignant neoplasm of large intestine; Z68.34 Body mass index [BMI] 34.0-34.9, adult
CPT/HCPCS: 82607-90; 97161-GP; G0378; J0171; J0690; J1100; J1885; J2001; J2250; J2370; J2405; J2704; J3010; P9016

== ENCOUNTER 2018-10-03 10:07 | Day surgery (SDC) | payer OTHER ==
[2018-10-03] MEDS ORDERED: LR 1,000 ML IV ONE (10:39)
--- NOTE | 2018-10-03 12:07 | PDANEPAE ---
ANE History of Present Illness history of gastric ulcers and melena, here for EGD ANE Past Medical History - Cardiovascular History Hx Hypertension: Yes Hx Arrhythmias: Yes Hx Chest Pain: No Hx Coronary Artery / Peripheral Vascular Disease: Yes Hx CHF / Valvular Disease: No Hx Palpitations: No Cardiovascular History Comment: ATRIAL FIB. [place]/STENT 07/2017 - Pulmonary History Hx COPD: No Hx Asthma/Reactive Airway Disease: No Hx Recent Upper Respiratory Infection: No Hx Oxygen in Use at Home: Yes O2 in Use at Home (L/minute): 2.L Hx Sleep Apnea: No Sleep Apnea Screening Result - Last Documented: Negative Pulmonary History Comment: WILL USE OXYGEN IF FEELS RUN DOWN - Neurologic History Hx Cerebrovascular Accident: No Hx Seizures: No Hx Dementia: No - Endocrine History Hx Diabetes: No - Renal History Hx Renal Disorders: No - Liver History Hx Hepatic Disorders: No Hepatic History Comment: GALL STONES - Neurological & Psychiatric Hx Hx Neurological and Psychiatric Disorders: Yes Neurological / Psychiatric History Comment: situational anxiety - Cancer History Hx Cancer: Yes Cancer History Comment: COLON. SKIN - Congenital Disorder History Hx Congenital Disorders: No - GI History Hx Gastrointestinal Disorders: Yes Gastrointestinal History Comment: CONSTIPATION. OCCASIONAL HEARTBURN. hx of gastric ulcers - Other Health History Other Health History: ARTHRITIS PAIN RT FOREARM AND LOWER BACK. ANEMIA. VITAMIN B-12 DEF. INTERMITTENT LOWER EXT. SWELLING - Chronic Pain History Chronic Pain: Yes (INTERMITTENT RUQ) - Surgical History Prior Surgeries: COLON RESECTION FOR CA. HYSTERECTOMY. DIAG LAP. cholecystectomy 07/24/18 ANE Review of Systems Review of Systems: - Exercise capacity METS (RN): 4 METS ANE Patient History - Allergies Allergies/Adverse Reactions: No Known Allergies Allergy (Verified 06/27/15 15:40) - Home Medications Home Medications: Compounded Estrogen Cream 1 soni VG HS 07/26/17 [Last Taken 10/02/18] Estradiol 0.5 mg PO DAILY 07/26/17 [Last Taken 10/03/18 08:30] Acetaminophen [Tylenol ES 500 mg (*)] 500 mg PO Q4H PRN 07/22/18 [Last Taken 09/07] - NPO status NPO Since - Liquids (Date): 10/03/18 NPO Since - Liquids (Time): 07:00 NPO Since - Solids (Date): 10/02/18 NPO Since - Solids (Time): 21:00 - Smoking Hx Smoking Status: Former smoker - Family Anes Hx Family Hx Anesthesia Complications: none ANE Labs/Vital Signs - Vital Signs Blood Pressure: 144/77 Heart Rate: 69 Respiratory Rate: 11 O2 Sat (%): 96 Height: 165.1 cm Weight: 87.543 kg ANE Physical Exam - Airway Neck exam: FROM ( )
--- NOTE | 2018-10-03 12:16 | PDGENHP ---
History & Physical Chief Complaint: hx PUD History of Present Illness: hx UGI bleed july 2018 Pertinent Past, Social, Family History: no tobacco'. rare alcohol. FHx - nocoloncancer. PMH - htn, PUD, hx colon resection Relevant Physical Exam: A+ox3w. CTA. S1S2. +BS, soft nt Cardiorespiratory Assessment: class 3
--- NOTE | 2018-10-03 12:19 | PDANEPAE ---
ANE History of Present Illness History of GIB, here for EGD ANE Past Medical History - Cardiovascular History Hx Hypertension: Yes Hx Arrhythmias: Yes Hx Chest Pain: No Hx Coronary Artery / Peripheral Vascular Disease: Yes Hx CHF / Valvular Disease: No Hx Palpitations: No Cardiovascular History Comment: ATRIAL FIB. [place]/STENT 07/2017 - Pulmonary History Hx COPD: No Hx Asthma/Reactive Airway Disease: No Hx Recent Upper Respiratory Infection: No Hx Oxygen in Use at Home: Yes O2 in Use at Home (L/minute): 2.L Hx Sleep Apnea: No Sleep Apnea Screening Result - Last Documented: Negative Pulmonary History Comment: WILL USE OXYGEN IF FEELS RUN DOWN - Neurologic History Hx Cerebrovascular Accident: No Hx Seizures: No Hx Dementia: No - Endocrine History Hx Diabetes: No - Renal History Hx Renal Disorders: No - Liver History Hx Hepatic Disorders: No Hepatic History Comment: GALL STONES - Neurological & Psychiatric Hx Hx Neurological and Psychiatric Disorders: Yes Neurological / Psychiatric History Comment: situational anxiety - Cancer History Hx Cancer: Yes Cancer History Comment: COLON. SKIN - Congenital Disorder History Hx Congenital Disorders: No - GI History Hx Gastrointestinal Disorders: Yes Gastrointestinal History Comment: CONSTIPATION. OCCASIONAL HEARTBURN. hx of gastric ulcers - Other Health History Other Health History: ARTHRITIS PAIN RT FOREARM AND LOWER BACK. ANEMIA. VITAMIN B-12 DEF. INTERMITTENT LOWER EXT. SWELLING - Chronic Pain History Chronic Pain: Yes (INTERMITTENT RUQ) - Surgical History Prior Surgeries: COLON RESECTION FOR CA. HYSTERECTOMY. DIAG LAP. cholecystectomy 07/24/18 ANE Review of Systems Review of Systems: - Exercise capacity METS (RN): 4 METS ANE Patient History - Allergies Allergies/Adverse Reactions: No Known Allergies Allergy (Verified 06/27/15 15:40) - Home Medications Home Medications: Compounded Estrogen Cream 1 soni VG HS 07/26/17 [Last Taken 10/02/18] Estradiol 0.5 mg PO DAILY 07/26/17 [Last Taken 10/03/18 08:30] Acetaminophen [Tylenol ES 500 mg (*)] 500 mg PO Q4H PRN 07/22/18 [Last Taken 09/07] - NPO status NPO Since - Liquids (Date): 10/03/18 NPO Since - Liquids (Time): 07:00 NPO Since - Solids (Date): 10/02/18 NPO Since - Solids (Time): 21:00 - Smoking Hx Smoking Status: Former smoker - Family Anes Hx Family Hx Anesthesia Complications: none ANE Labs/Vital Signs - Vital Signs Blood Pressure: 144/77 Heart Rate: 69 Respiratory Rate: 11 O2 Sat (%): 96 Height: 165.1 cm Weight: 87.543 kg ANE Physical Exam - Airway Neck exam: decreased ROM Mallampati Score: Class 3 Mouth exam: normal dental/mouth exam - Pulmonary Pulmonary: no respiratory distress - Cardiovascular Cardiovascular: regular rate and rhythym - ASA Status ASA Status: III ANE Anesthesia Plan Anesthesia Plan: GA with mask, MAC Total IV Anesthesia: Yes
[2018-10-03] MEDS ORDERED: PROPOFOL/EMULSION 500 MG/50 ML BOTTLE IV ONE (12:21)
--- NOTE | 2018-10-03 12:46 | GIREPORT ---
[facility] Surgical Services - Endoscopy Department Patient Name: Adrienne Bello Procedure Date: 10/03/2018 10:41 AM Patient Type: Outpatient Attending MD/ ER Physician: Justin Gan MD Procedure: Upper GI endoscopy Indications: Follow-up of peptic ulcer Providers: Justin Gan MD Referring MD: Krystina Laughlin MD, Salvador Desai MD, Keira Reyes MD Medicines: Propofol per Anesthesia = IV general with spontaneous respirations Complications: No immediate complications. Estimated blood loss: Minimal. Description of Procedure: After obtaining informed consent, the endoscope was passed under direct vision. Throughout the procedure, the patient's blood pressure, pulse, and oxygen saturations were monitored continuously. The Endoscope was intro duced through the mouth, and advanced to the third part of duodenum. The uppe r GI endoscopy was accomplished without difficulty. The patient tolerated th e procedure well. Findings: The examined esophagus was normal. A small hiatal hernia was present. Scattered mild inflammation characterized by erythema, friability and granularity was found in the gastric antrum. Biopsies were taken with a cold forceps for histology. Estimated blood loss was minimal. The examined duodenum was normal. The exam was otherwise without abnormality. Estimated Blood Loss: Estimated blood loss was minimal. Post Op Diagnosis: - Normal esophagus. - Small hiatal hernia. - Gastritis. Biopsied. - Normal examined duodenum. - The examination was otherwise normal. Recommendation: - Await pathology results. - My office will call with the pathology result with 5-7 days. If you h ave not heard from my office by 12-14, do not assume the pathology is kateryna l, please call [phone] to get the pathology results. - Continue present medications. Decrease Pantoprazole to once daily - Use Protonix (pantoprazole) 40 mg PO daily. Take 30-60 minutes before breakfast. 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 If she will not be on aspirin or NSAIDs t hen she may be able to come off PPI - Discharge patient to home (ambulatory). - Return to primary care physician as previously scheduled. - Return to referring physician as previously scheduled. - Thank you for allowing me to help in your patient's care. Do not hesi peters to call with any questions. Attending Participation: I personally performed the entire procedure. Elvia Carmona M.D Justin Gan MD 10/03/2018 12:45:55 PM This report has been signed electronicallyMattdesire Gan MD Number of Addenda: 0 Note Initiated On: 10/03/2018 10:41 AM [email or web address]
[2018-10-03] MEDS ORDERED: NALOXONE HCL 0.4 MG/ML INJ IVP PRN (12:57)
[2018-10-03] MEDS ORDERED: LABETALOL HCL 20 MG/4 ML INJ IVP PRN (12:57)
[2018-10-03] MEDS ORDERED: ONDANSETRON 4 MG/2 ML VIAL IVP PRN (12:57)
[2018-10-03] MEDS ORDERED: fentaNYL 100 MCG/2 ML INJ IVP PRN (12:57)
[2018-10-03] MEDS ORDERED: ACETAMINOPHEN 500 MG TAB PO PRN (12:57)
[2018-10-03] MEDS ORDERED: MEPERIDINE 25 MG/0.5 ML AMP IVP PRN (12:57)
[2018-10-03] MEDS ORDERED: oxyCODONE IR 5 MG TAB PO PRN (12:57)
[2018-10-03] MEDS ORDERED: HYDROmorphONE/DILAUDID 2 MG/ML INJ IVP PRN (12:57)
[2018-10-03] MEDS ORDERED: LR 500 ML IV PRN (12:57)
--- NOTE | 2018-10-03 12:58 | POSTANESTH ---
Post Anesthetic Evaluation Cardiovascular Status: Normal, Stable Respiratory Status: Normal, Stable Level of Consciousness/Mental Status: Can Participate in Eval Pain Control: Adequate, Prn Tx Ordered Nausea/Vomiting Control: Adequate, Prn Tx Ordered Complications Possibly Related to Anesthesia: None Noted
[2018-10-03 15:12] VITALS: BP 148/83
== END 2018-10-03 15:30 | disposition home or self-care (01) ==
LOC: FSGY 10:07
PROVIDERS: ATTEND Internal Medicine Gastroenterology
PROC: 0DB68ZX Excision of Stomach, Via Natural or Artificial Opening Endoscopic, Diagnostic (ICD-10-PCS; principal; 2018-10-03 12:00)
DX: Z87.11 Personal history of peptic ulcer disease (principal); Z09 Encounter for follow-up examination after completed treatment for conditions other than malignant neoplasm; K29.70 Gastritis, unspecified, without bleeding; K44.9 Diaphragmatic hernia without obstruction or gangrene; I48.91 Unspecified atrial fibrillation; Z95.5 Presence of coronary angioplasty implant and graft; I25.2 Old myocardial infarction; Z87.891 Personal history of nicotine dependence
CPT/HCPCS: J2704

== ENCOUNTER → 2018-12-29 | Outpatient (CLI) | payer OTHER | LOC: FIMAGING 14:30 | PROVIDERS: ATTEND Internal Medicine Hematology & Oncology | DX: Z12.31 Encounter for screening mammogram for malignant neoplasm of breast (principal); Z80.3 Family history of malignant neoplasm of breast ==